=== PATIENT | female | born 1980 | race Caucasian/White ===

== ENCOUNTER 2017-06-06 17:39 | Inpatient (IN) | payer SELFPAY ==
[~2017-06-06] VITALS: Ht 167.6 cm; Wt 72.0 kg
[2017-06-06 18:25] LABS: Basophils # (auto) 0 uL; Basophils % (auto) 0.2 % (0.0-2.0); CONDITION Y; DEFINITIVE SEE PRINTOUT; Eosinophils # (auto) 0.2 uL; Eosinophils % (auto) 3.4 % (0.0-7.0); Hematocrit 31.2 % (36.0-46.0); Hemoglobin 10.2 g/dL (12.2-16.2); Lymphocytes # (auto) 1.4 uL; Lymphocytes % (auto) 20.1 % (10.0-50.0); Mean Corpuscular Hemoglobin 31.6 pg (28.0-32.0); Mean Corpuscular Hgb Conc. 32.6 g/dL (32.0-36.0); Mean Corpuscular Volume 96.9 fL (80.0-100.0); Mean Platelet Volume 9.9 fL (7.4-10.4); Monocytes # (auto) 0.9 uL; Monocytes % (auto) 12.8 % (0.0-12.0); Neutrophils # (auto) 4.3 uL; Neutrophils % (auto) 63.5 % (37.0-80.0); Platelet Count (auto) 299 10^3/uL (140-450); White Blood Cell 6.8 10^3/uL (4.4-10.8)
[2017-06-06 18:47] LABS: Albumin 2.5 g/dL (3.4-5.0); BUN/Creatinine Ratio 6.9; Calcium 7.6 mg/dL (8.5-10.1)
[2017-06-06 18:50] LABS: Bilirubin, Total 0.4 mg/dL (0.2-1.0); Total Protein 6.6 g/dL (6.4-8.2)
[2017-06-06 19:32] LABS: Urine Bilirubin Negative (Negative); Urine Blood Negative /uL (Negative); Urine Color Yellow (Yellow); Urine Glucose Normal (Normal); Urine Hyaline Cast FEW /lpf (0 - 2); Urine Ketone Negative (Negative); Urine RBC 1 /hpf (0 - 4); Urine Squamous Epithelial Cell FEW /hpf (<5); Urine Urobilinogen Normal (Negative); Urine pH 6.5 (5.0-8.0)
[2017-06-06 19:35] LABS: Urine Nitrite POSITIVE (Negative)
[2017-06-06] MEDS ORDERED: SODIUM CHLORIDE 0.9% 1,000 ML IVB ONE (19:57)
[2017-06-06 20:51] LABS: Anisocytosis Moderate; Platelet Estimate Adequate
[2017-06-06] MEDS ORDERED: cefTRIAXone 1GM/50ML D5W 50 ML IV ONE (21:15)
[2017-06-06] MEDS ORDERED: HYDROmorphone HCL 2 MG/ML VL IV ONE (21:30)
[2017-06-06] MEDS ORDERED: ONDANSETRON HCL 4 MG/2 ML VIAL IV ONE (21:30)
[2017-06-06 21:50] LABS: Amylase 460 U/L (25-115)
[2017-06-07] MEDS ORDERED: POTASSIUM CHL 20MEQ/100ML 100 ML IV ONE (00:05)
[2017-06-07] MEDS: POTASSIUM CHL 20MEQ/100ML 100 ML IV SCH ×2 (00:16→01:48)
[2017-06-07] MEDS ORDERED: HYDROmorphone HCL 2 MG/ML VL IV ONE (02:00)
[2017-06-07] MEDS ORDERED: SODIUM CHLORIDE 0.9% 1,000 ML IV SCH (08:28)
[2017-06-07] MEDS: cefTRIAXone 1GM/50ML D5W 50 ML IV SCH (09:36)
[2017-06-07] MEDS ORDERED: THIAMINE HCL 100 MG/ML 2ML VIAL IV ONE (10:00)
[2017-06-07] MEDS ORDERED: LORazepam 2MG/ML-1ML VIAL IV PRN (10:00)
[2017-06-07] MEDS: THIAMINE HCL 100 MG/ML 2ML VIAL IV SCH (10:32)
[2017-06-07] MEDS: FAMOTIDINE (10MG/ML) 2ML VL IV SCH ×2 (10:33→22:14)
[2017-06-07] MEDS: PROMETHAZINE HCL 25 MG/ML 1ML IV PRN (10:40)
[2017-06-07] MEDS: MORPHINE SULFATE 4 MG/ML SYRG IV PRN ×2 (10:40→17:18)
[2017-06-07] MEDS: metroNIDAZOLE 500MG/100ML 100 ML IV SCH ×2 (13:58→22:14)
[2017-06-07 14:42] LABS: Temperature: 22.3 C (20.0-25.0)
[2017-06-07] MEDS: LACTATED RINGER'S 1,000 ML IV SCH ×2 (15:45→22:15)
[2017-06-07 17:42] VITALS: BP 94/65
[2017-06-07 22:00] VITALS: BP 106/68
[2017-06-07] MEDS: MORPHINE SULF INJ 2 MG/ML SYRINGE 1ML IV PRN (22:15)
[2017-06-08] VITALS (7 sets, daily range): BP systolic 95–105; BP diastolic 52–66
[2017-06-08] MEDS: MORPHINE SULF INJ 2 MG/ML SYRINGE 1ML IV PRN ×4 (03:18→21:55)
[2017-06-08 05:49] LABS: Basophils # (auto) 0 uL; Basophils % (auto) 0.5 % (0.0-2.0); CONDITION Y; DEFINITIVE SEE PRINTOUT; Eosinophils # (auto) 0.1 uL; Eosinophils % (auto) 2.7 % (0.0-7.0); Hematocrit 25.9 % (36.0-46.0); Hemoglobin 8.4 g/dL (12.2-16.2); Lymphocytes % (auto) 19.8 % (10.0-50.0); Mean Corpuscular Hemoglobin 31.8 pg (28.0-32.0); Mean Corpuscular Hgb Conc. 32.2 g/dL (32.0-36.0); Mean Corpuscular Volume 98.5 fL (80.0-100.0); Mean Platelet Volume 9.7 fL (7.4-10.4); Monocytes # (auto) 0.7 uL; Monocytes % (auto) 13.2 % (0.0-12.0); Neutrophils # (auto) 3.2 uL; Neutrophils % (auto) 63.8 % (37.0-80.0); Platelet Count (auto) 299 10^3/uL (140-450); Red Cell Distribution Width 19.5 % (11.6-16.0); SUSPECT SEE PRINTOUT
[2017-06-08] MEDS: LACTATED RINGER'S 1,000 ML IV SCH ×3 (05:56→23:45)
[2017-06-08] MEDS: metroNIDAZOLE 500MG/100ML 100 ML IV SCH (05:56)
[2017-06-08 06:04] LABS: White Blood Cell 5.2 10^3/uL (4.4-10.8)
[2017-06-08 06:17] LABS: Albumin 1.9 g/dL (3.4-5.0); BUN/Creatinine Ratio 18.5; Bilirubin, Total 0.3 mg/dL (0.2-1.0); Calcium 7.2 mg/dL (8.5-10.1); Magnesium 2.1 mg/dL (1.6-2.6); Total Protein 5.1 g/dL (6.4-8.2)
[2017-06-08 06:20] LABS: Potassium 2.9 mmol/L (3.5-5.1)
[2017-06-08] MEDS ORDERED: POTASSIUM CHL 20 Meq TABLET PO ONE (06:45)
[2017-06-08] MEDS: POTASSIUM CHL 20MEQ/100ML 100 ML IV SCH ×2 (08:39→13:05)
[2017-06-08] MEDS: cefTRIAXone 1GM/50ML D5W 50 ML IV SCH (09:00)
[2017-06-08] MEDS: FAMOTIDINE (10MG/ML) 2ML VL IV SCH ×2 (09:29→21:55)
[2017-06-08] MEDS: THIAMINE HCL 100 MG/ML 2ML VIAL IV SCH (09:31)
[2017-06-08] MEDS: PROMETHAZINE HCL 25 MG/ML 1ML IV PRN (16:36)
[2017-06-09] VITALS (7 sets, daily range): BP systolic 95–105; BP diastolic 57–70
[2017-06-09] MEDS: MORPHINE SULF INJ 2 MG/ML SYRINGE 1ML IV PRN ×3 (03:15→21:13)
[2017-06-09 06:17] LABS: Hemoglobin 8.8 g/dL (12.2-16.2)
[2017-06-09 06:35] LABS: Potassium 3.1 mmol/L (3.5-5.1)
[2017-06-09] MEDS: LACTATED RINGER'S 1,000 ML IV SCH ×2 (07:37→14:47)
[2017-06-09] MEDS: cefTRIAXone 1GM/50ML D5W 50 ML IV SCH (08:22)
[2017-06-09] MEDS: MORPHINE SULFATE 4 MG/ML SYRG IV PRN ×2 (08:36→12:26)
[2017-06-09] MEDS: THIAMINE HCL 100 MG/ML 2ML VIAL IV SCH (09:53)
[2017-06-09] MEDS: FAMOTIDINE (10MG/ML) 2ML VL IV SCH ×2 (09:53→22:09)
[2017-06-09] MEDS ORDERED: POTASSIUM CHL 20 Meq TABLET PO ONE (15:15)
[2017-06-10] VITALS (7 sets, daily range): BP systolic 91–123; BP diastolic 50–81
[2017-06-10] MEDS: MORPHINE SULF INJ 2 MG/ML SYRINGE 1ML IV PRN ×5 (02:07→21:13)
[2017-06-10] MEDS: LACTATED RINGER'S 1,000 ML IV SCH ×2 (04:52→07:45)
[2017-06-10 06:50] LABS: Hematocrit 26.4 % (36.0-46.0); Hemoglobin 8.6 g/dL (12.2-16.2)
[2017-06-10] MEDS ORDERED: POTASSIUM CHL 20 Meq TABLET PO ONE (10:00)
[2017-06-10] MEDS: cefTRIAXone 1GM/50ML D5W 50 ML IV SCH (10:48)
[2017-06-10] MEDS: THIAMINE HCL 100 MG/ML 2ML VIAL IV SCH (10:50)
[2017-06-10] MEDS: FAMOTIDINE (10MG/ML) 2ML VL IV SCH ×2 (10:50→21:12)
[2017-06-10] MEDS: PROMETHAZINE HCL 25 MG/ML 1ML IV PRN (21:14)
[2017-06-11] VITALS (7 sets, daily range): BP systolic 92–116; BP diastolic 60–75
[2017-06-11 06:22] LABS: Potassium 3.4 mmol/L (3.5-5.1)
[2017-06-11] MEDS: MORPHINE SULF INJ 2 MG/ML SYRINGE 1ML IV PRN ×5 (06:46→23:06)
[2017-06-11] MEDS ORDERED: POTASSIUM CHL 20 Meq TABLET PO ONE (09:30)
[2017-06-11] MEDS: cefTRIAXone 1GM/50ML D5W 50 ML IV SCH (09:45)
[2017-06-11] MEDS: FAMOTIDINE (10MG/ML) 2ML VL IV SCH ×2 (11:19→21:58)
[2017-06-11] MEDS: THIAMINE HCL 100 MG/ML 2ML VIAL IV SCH (11:19)
[2017-06-11] MEDS: LACTATED RINGER'S 1,000 ML IV SCH (15:45)
[2017-06-11] MEDS ORDERED: FUROSEMIDE 20 MG/2 ML VIAL IV ONE (17:15)
[2017-06-12] VITALS (7 sets, daily range): BP systolic 95–110; BP diastolic 62–76
[2017-06-12] MEDS: LACTATED RINGER'S 1,000 ML IV SCH ×2 (01:45→07:00)
[2017-06-12] MEDS: MORPHINE SULF INJ 2 MG/ML SYRINGE 1ML IV PRN ×6 (03:48→23:50)
[2017-06-12 06:49] LABS: BUN/Creatinine Ratio 6.3; Calcium 7.6 mg/dL (8.5-10.1); Potassium 3.3 mmol/L (3.5-5.1)
[2017-06-12] MEDS ORDERED: POTASSIUM CHL 20 Meq TABLET PO ONE (09:15)
[2017-06-12] MEDS: cefTRIAXone 1GM/50ML D5W 50 ML IV SCH (09:53)
[2017-06-12] MEDS: FAMOTIDINE (10MG/ML) 2ML VL IV SCH ×2 (09:54→21:45)
[2017-06-12] MEDS: THIAMINE HCL 100 MG/ML 2ML VIAL IV SCH (10:04)
[2017-06-12] MEDS ORDERED: FUROSEMIDE 20 MG/2 ML VIAL IV ONE (13:00)
[2017-06-13 04:51] VITALS: BP 105/73
[2017-06-13 06:58] LABS: Magnesium 1.7 mg/dL (1.6-2.6); Potassium 3.9 mmol/L (3.5-5.1)
[2017-06-13 08:00] VITALS: BP 106/67
[2017-06-13] MEDS: MORPHINE SULF INJ 2 MG/ML SYRINGE 1ML IV PRN ×3 (08:12→13:51)
[2017-06-13 09:00] VITALS: BP 106/67
[2017-06-13] MEDS: FAMOTIDINE (10MG/ML) 2ML VL IV SCH (09:31)
[2017-06-13] MEDS: cefTRIAXone 1GM/50ML D5W 50 ML IV SCH (09:31)
[2017-06-13] MEDS: THIAMINE HCL 100 MG/ML 2ML VIAL IV SCH (09:32)
[2017-06-13] MEDS: PROMETHAZINE HCL 25 MG/ML 1ML IV PRN (09:56)
[2017-06-13] MEDS ORDERED: MAGNESIUM SULFATE 1GM/100ML 100 ML IV ONE (11:45)
[2017-06-13 13:00] VITALS: BP 110/64
[2017-06-13] MEDS ORDERED: TRAM-297 PO (13:23)
[2017-06-13 14:56] VITALS: BP 110/64
== END 2017-06-13 17:00 | disposition home or self-care (01) | DRG 689 ==
LOC: ER 17:41 → OVERFLOW 17:42 → EAST 06-07 15:18 → WEST WING 06-07 17:29
PROVIDERS: ADMIT Internal Medicine; ATTEND Internal Medicine
DX: N39.0 Urinary tract infection, site not specified (principal); K85.20 Alcohol induced acute pancreatitis without necrosis or infection; K86.2 Cyst of pancreas; R18.8 Other ascites; K86.0 Alcohol-induced chronic pancreatitis; D64.9 Anemia, unspecified; E87.6 Hypokalemia; B96.20 Unspecified Escherichia coli [E. coli] as the cause of diseases classified elsewhere; F10.10 Alcohol abuse, uncomplicated; K70.0 Alcoholic fatty liver; F17.200 Nicotine dependence, unspecified, uncomplicated; Z80.1 Family history of malignant neoplasm of trachea, bronchus and lung; Z83.3 Family history of diabetes mellitus; Z88.5 Allergy status to narcotic agent; Z88.8 Allergy status to other drugs, medicaments and biological substances; Z71.41 Alcohol abuse counseling and surveillance of alcoholic; Z71.6 Tobacco abuse counseling
CPT/HCPCS: 36415; 74176; 76705; 80048; 80053; 80061; 81001; 81025; 82150; 82270; 82607; 82746; 83540; 83550; 83690; 83735; 84132; 84702; 85014; 85018; 85025; 87086; 87088; 87186; 94761; 96361; 96365; 96375; J0696; J2405; J3480; J3490

== ENCOUNTER 2017-06-26 19:58 | Inpatient (IN) | payer SELFPAY ==
[~2017-06-26] VITALS: Ht 167.6 cm; Wt 67.3 kg
[~2017-06-26 19:58] MED LIST: TRAM-297 PO
[2017-06-26 20:35] LABS: Urine Blood 3+ /uL (Negative); Urine Color Yellow (Yellow); Urine Glucose Normal (Normal); Urine Hyaline Cast MANY /lpf (0 - 2); Urine Ketone 3+ (Negative); Urine Mucus FEW (None Seen); Urine Nitrite Negative (Negative); Urine RBC 15 /hpf (0 - 4); Urine Squamous Epithelial Cell FEW /hpf (<5)
[2017-06-26 20:42] LABS: Urine Bilirubin 1+ (Negative)
[2017-06-26 20:44] LABS: Basophils # (auto) 0 uL; Basophils % (auto) 0.2 % (0.0-2.0); CONDITION Y; DEFINITIVE SEE PRINTOUT; Eosinophils # (auto) 0.1 uL; Eosinophils % (auto) 1.1 % (0.0-7.0); Lymphocytes # (auto) 1.1 uL; Lymphocytes % (auto) 8.3 % (10.0-50.0); Mean Corpuscular Hemoglobin 29.1 pg (28.0-32.0); Mean Corpuscular Hgb Conc. 32.3 g/dL (32.0-36.0); Mean Corpuscular Volume 90.1 fL (80.0-100.0); Mean Platelet Volume 7.7 fL (7.4-10.4); Monocytes # (auto) 0.6 uL; Neutrophils % (auto) 85.4 % (37.0-80.0); White Blood Cell 12.9 10^3/uL (4.4-10.8)
[2017-06-26 21:03] LABS: Albumin 1.7 g/dL (3.4-5.0); BUN/Creatinine Ratio 16.7; Calcium 8.1 mg/dL (8.5-10.1); Potassium 3.5 mmol/L (3.5-5.1)
[2017-06-26 21:05] LABS: Platelet Count (auto) 835 10^3/uL (140-450)
[2017-06-26 21:11] LABS: Total Protein 6.3 g/dL (6.4-8.2)
[2017-06-26 21:18] LABS: Anisocytosis Slight; Platelet Estimate Markedly Increased; Stomatocytes Few
[2017-06-26 21:21] LABS: Bilirubin, Total 0.4 mg/dL (0.2-1.0)
[2017-06-26] MEDS ORDERED: HYDROmorphone HCL 2 MG/ML VL IV ONE (22:00)
[2017-06-26] MEDS ORDERED: ONDANSETRON HCL 4 MG/2 ML VIAL IV ONE (22:00)
[2017-06-26] MEDS ORDERED: ENOXAPARIN SOD 100 MG/1 ML SYRINGE SC ONE (22:30)
[2017-06-27] MEDS ORDERED: cefTRIAXone 1GM/50ML D5W 50 ML IV ONE (01:15)
[2017-06-27] MEDS ORDERED: SODIUM CHLORIDE 0.9% 1,000 ML IV SCH (01:15)
[2017-06-27] MEDS: MORPHINE SULF INJ 2 MG/ML SYRINGE 1ML IV PRN ×4 (06:07→20:21)
[2017-06-27] MEDS: ONDANSETRON HCL 4 MG/2 ML VIAL IV PRN ×4 (06:08→20:20)
[2017-06-27 07:57] VITALS: BP 112/73
[2017-06-27] MEDS: FAMOTIDINE 20 MG TAB PO SCH ×2 (09:31→21:34)
[2017-06-27] MEDS: ENOXAPARIN SOD 80 MG/0.8ML SYRINGE SC SCH ×2 (10:00→16:29)
[2017-06-27 10:53] LABS: INR 1.12 (0.9-1.15); Partial Thromboplastin Time 25.3 sec (22.64-33.71); Prothrombin Time 12.2 sec (9.37-12.3)
[2017-06-27] MEDS ORDERED: ENOXAPARIN SOD 100 MG/1 ML SYRINGE SC ONE (13:15)
[2017-06-27] MEDS ORDERED: IOHEXOL 350 MG/ML 100ML IJ ONE (13:16)
[2017-06-27] MEDS: LACTATED RINGER'S 1,000 ML IV SCH ×2 (15:36→20:45)
[2017-06-27] MEDS: ALBUMIN 25% 100 ML IV SCH ×2 (16:32→17:44)
[2017-06-27 17:00] VITALS: BP 111/70
[2017-06-27 17:38] LABS: Body Fluid Polymorphonuclear 50 %
[2017-06-27 20:00] VITALS: BP 101/64
[2017-06-27] MEDS: cefTRIAXone 1GM/50ML D5W 50 ML IV SCH (21:33)
[2017-06-27] MEDS: TEMAZEPAM 15 MG CAP PO PRN (21:34)
[2017-06-27 22:00] VITALS: BP 101/64
[2017-06-27] MEDS ORDERED: ENOXAPARIN SOD 100 MG/1 ML SYRINGE SC SCH (22:00)
[2017-06-28] MEDS: MORPHINE SULF INJ 2 MG/ML SYRINGE 1ML IV PRN ×5 (02:07→21:37)
[2017-06-28] MEDS: ONDANSETRON HCL 4 MG/2 ML VIAL IV PRN ×4 (02:08→15:23)
[2017-06-28 05:09] VITALS: BP 97/61
[2017-06-28] MEDS: LACTATED RINGER'S 1,000 ML IV SCH ×2 (06:59→15:59)
[2017-06-28 07:23] LABS: Basophils # (auto) 0 uL; Basophils % (auto) 0.3 % (0.0-2.0); CONDITION Y; DEFINITIVE SEE PRINTOUT; Eosinophils # (auto) 0.4 uL; Eosinophils % (auto) 4.1 % (0.0-7.0); Hematocrit 30.4 % (36.0-46.0); Hemoglobin 9.9 g/dL (12.2-16.2); Lymphocytes # (auto) 1.1 uL; Lymphocytes % (auto) 11.4 % (10.0-50.0); Mean Corpuscular Hemoglobin 29.4 pg (28.0-32.0); Mean Corpuscular Hgb Conc. 32.7 g/dL (32.0-36.0); Mean Corpuscular Volume 89.8 fL (80.0-100.0); Mean Platelet Volume 7.8 fL (7.4-10.4); Monocytes # (auto) 0.6 uL; Monocytes % (auto) 5.9 % (0.0-12.0); Neutrophils # (auto) 7.8 uL; Neutrophils % (auto) 78.3 % (37.0-80.0); Red Cell Distribution Width 19.2 % (11.6-16.0)
[2017-06-28 07:40] LABS: Platelet Count (auto) 750 10^3/uL (140-450)
[2017-06-28 07:43] LABS: Albumin 2.1 g/dL (3.4-5.0); BUN/Creatinine Ratio 16.7; Bilirubin, Total 0.3 mg/dL (0.2-1.0); Calcium 7.5 mg/dL (8.5-10.1); Potassium 3.1 mmol/L (3.5-5.1); Total Protein 5.6 g/dL (6.4-8.2)
[2017-06-28 07:53] LABS: Platelet Estimate Increased
[2017-06-28 07:55] LABS: Anisocytosis Slight; Giant Platelets Few
[2017-06-28 09:54] VITALS: BP 96/61
[2017-06-28] MEDS: FAMOTIDINE 20 MG TAB PO SCH ×2 (10:00→21:35)
[2017-06-28] MEDS ORDERED: POTASSIUM CHLORIDE 40 MEQ, LIDOCAINE 1% (LOCAL ANESTH.) 4 ML in SODIUM CHL 0.9% 250 ML IV ONE (10:30)
[2017-06-28] MEDS: ENOXAPARIN SOD 80 MG/0.8ML SYRINGE SC SCH ×2 (10:52→21:35)
[2017-06-28 12:07] LABS: Albumin, Body Fluid 1.1 g/dL (.)
[2017-06-28] MEDS ORDERED: diphenhdrAMINE HCL 50 MG/1 ML VL IV ONE (12:15)
[2017-06-28] MEDS ORDERED: chlordiazePOXIDE HCL 5 MG CAP PO PRN (12:15)
[2017-06-28] MEDS ORDERED: diphenhdrAMINE HCL 50 MG/1 ML VL IV PRN (12:15)
[2017-06-28 12:46] VITALS: BP 96/62
[2017-06-28] MEDS: THIAMINE INJ 100 MG, MULTIPLE VITAMIN 10 ML, FOLIC ACID 1 MG, MAGNESIUM SULF SDV 50% 8 ... IV SCH ×5 (15:24)
[2017-06-28 17:44] VITALS: BP 102/68
[2017-06-28] MEDS: cefTRIAXone 1GM/50ML D5W 50 ML IV SCH (21:35)
[2017-06-28 22:00] VITALS: BP 103/70
[2017-06-28] MEDS: TEMAZEPAM 15 MG CAP PO PRN (22:23)
[2017-06-29] MEDS: MORPHINE SULF INJ 2 MG/ML SYRINGE 1ML IV PRN ×6 (01:43→22:10)
[2017-06-29 05:00] VITALS: BP 99/64
[2017-06-29 05:35] LABS: Basophils # (auto) 0 uL; Basophils % (auto) 0.3 % (0.0-2.0); CONDITION Y; DEFINITIVE SEE PRINTOUT; Eosinophils # (auto) 0.3 uL; Hematocrit 28.2 % (36.0-46.0); Hemoglobin 9.1 g/dL (12.2-16.2); Lymphocytes # (auto) 1.1 uL; Lymphocytes % (auto) 11.3 % (10.0-50.0); Mean Corpuscular Hgb Conc. 32.3 g/dL (32.0-36.0); Mean Corpuscular Volume 89.8 fL (80.0-100.0); Mean Platelet Volume 7.3 fL (7.4-10.4); Monocytes # (auto) 0.5 uL; Monocytes % (auto) 5.6 % (0.0-12.0); Neutrophils # (auto) 7.5 uL; Neutrophils % (auto) 79.8 % (37.0-80.0); Platelet Count (auto) 694 10^3/uL (140-450); White Blood Cell 9.4 10^3/uL (4.4-10.8)
[2017-06-29 06:00] LABS: Albumin 1.6 g/dL (3.4-5.0); Calcium 7.3 mg/dL (8.5-10.1); Potassium 3.2 mmol/L (3.5-5.1)
[2017-06-29 06:02] LABS: BUN/Creatinine Ratio 13.5
[2017-06-29 06:05] LABS: Bilirubin, Total 0.2 mg/dL (0.2-1.0); Total Protein 4.7 g/dL (6.4-8.2)
[2017-06-29 06:37] LABS: Anisocytosis Slight; Ovalocytes FEW; Platelet Estimate Increased
[2017-06-29 07:00] VITALS: BP 105/66
[2017-06-29] MEDS ORDERED: POTASSIUM CHLORIDE 40 MEQ, LIDOCAINE 1% (LOCAL ANESTH.) 4 ML in SODIUM CHL 0.9% 250 ML IV ONE (09:15)
[2017-06-29] MEDS: ENOXAPARIN SOD 80 MG/0.8ML SYRINGE SC SCH ×2 (09:31→22:00)
[2017-06-29] MEDS: ONDANSETRON HCL 4 MG/2 ML VIAL IV PRN ×3 (09:32→18:07)
[2017-06-29] MEDS: FAMOTIDINE 20 MG TAB PO SCH ×2 (09:32→22:00)
[2017-06-29 09:42] LABS: Amylase 380 U/L (25-115)
[2017-06-29 12:03] VITALS: BP 103/66
[2017-06-29] MEDS: LACTATED RINGER'S 1,000 ML IV SCH ×2 (12:03)
[2017-06-29] MEDS: THIAMINE INJ 100 MG, MULTIPLE VITAMIN 10 ML, FOLIC ACID 1 MG, MAGNESIUM SULF SDV 50% 8 ... IV SCH ×5 (14:01)
[2017-06-29 16:26] VITALS: BP 103/73
[2017-06-29 22:00] VITALS: BP 100/61
[2017-06-29] MEDS: cefTRIAXone 1GM/50ML D5W 50 ML IV SCH (22:30)
[2017-06-29] MEDS: TEMAZEPAM 15 MG CAP PO PRN (23:04)
[2017-06-30] MEDS: LACTATED RINGER'S 1,000 ML IV SCH (03:43)
[2017-06-30 05:00] VITALS: BP 103/64
[2017-06-30] MEDS: MORPHINE SULF INJ 2 MG/ML SYRINGE 1ML IV PRN ×4 (06:22→19:17)
[2017-06-30 09:00] VITALS: BP 123/86
[2017-06-30] MEDS: FAMOTIDINE 20 MG TAB PO SCH ×2 (10:19→21:23)
[2017-06-30] MEDS: ENOXAPARIN SOD 80 MG/0.8ML SYRINGE SC SCH ×2 (10:20→21:23)
[2017-06-30 13:00] VITALS: BP 113/59
[2017-06-30] MEDS: THIAMINE INJ 100 MG, MULTIPLE VITAMIN 10 ML, FOLIC ACID 1 MG, MAGNESIUM SULF SDV 50% 8 ... IV SCH ×5 (14:19)
[2017-06-30 17:13] VITALS: BP 105/68
[2017-06-30 21:17] VITALS: BP 105/62
[2017-06-30] MEDS: cefTRIAXone 1GM/50ML D5W 50 ML IV SCH (21:23)
[2017-06-30] MEDS: TEMAZEPAM 15 MG CAP PO PRN (21:39)
[2017-07-01] MEDS: MORPHINE SULF INJ 2 MG/ML SYRINGE 1ML IV PRN ×5 (00:21→19:41)
[2017-07-01 04:56] VITALS: BP 96/57
[2017-07-01 09:00] VITALS: BP 106/67
[2017-07-01] MEDS: ENOXAPARIN SOD 80 MG/0.8ML SYRINGE SC SCH ×2 (10:48→21:25)
[2017-07-01] MEDS: FAMOTIDINE 20 MG TAB PO SCH ×2 (10:48→21:25)
[2017-07-01] MEDS: ALBUMIN 25% 100 ML IV SCH ×2 (11:08→15:03)
[2017-07-01 13:00] VITALS: BP 104/71
[2017-07-01 14:21] LABS: Body Fluid Polymorphonuclear 96 %
[2017-07-01 17:00] VITALS: BP 108/70
[2017-07-01] MEDS: TEMAZEPAM 15 MG CAP PO PRN (21:25)
[2017-07-01 22:00] VITALS: BP 103/64
[2017-07-01] MEDS ORDERED: cefTRIAXone 1GM/50ML D5W 50 ML IV SCH (22:00)
[2017-07-02] MEDS: MORPHINE SULF INJ 2 MG/ML SYRINGE 1ML IV PRN ×5 (00:45→23:19)
[2017-07-02 05:00] VITALS: BP 95/60
[2017-07-02 08:00] VITALS: BP 103/64
[2017-07-02] MEDS: FAMOTIDINE 20 MG TAB PO SCH ×2 (09:20→22:00)
[2017-07-02] MEDS: ENOXAPARIN SOD 80 MG/0.8ML SYRINGE SC SCH ×2 (09:20→22:00)
[2017-07-02 09:25] LABS: Basophils # (auto) 0 uL; Basophils % (auto) 0.1 % (0.0-2.0); CONDITION Y; DEFINITIVE SEE PRINTOUT; Eosinophils # (auto) 0.1 uL; Eosinophils % (auto) 1.8 % (0.0-7.0); Hematocrit 26.9 % (36.0-46.0); Hemoglobin 8.7 g/dL (12.2-16.2); Lymphocytes % (auto) 15.9 % (10.0-50.0); Mean Corpuscular Hgb Conc. 32.5 g/dL (32.0-36.0); Mean Corpuscular Volume 89.2 fL (80.0-100.0); Mean Platelet Volume 7.5 fL (7.4-10.4); Monocytes # (auto) 0.7 uL; Monocytes % (auto) 11.1 % (0.0-12.0); Neutrophils # (auto) 4.5 uL; Neutrophils % (auto) 71.1 % (37.0-80.0); Platelet Count (auto) 693 10^3/uL (140-450); Red Cell Distribution Width 19.2 % (11.6-16.0); SUSPECT SEE PRINTOUT; White Blood Cell 6.3 10^3/uL (4.4-10.8)
[2017-07-02 09:42] LABS: INR 1.15 (0.9-1.15); Partial Thromboplastin Time 31.5 sec (22.64-33.71); Prothrombin Time 12.5 sec (9.37-12.3)
[2017-07-02 09:47] LABS: Anion Gap 8 (5-15); BUN/Creatinine Ratio 2.6; Blood Urea Nitrogen < 1 mg/dL (7-18); Carbon Dioxide 28 mmol/L (21-32); Chloride 104 mmol/L (98-107); GFR African American 244 mL/min; GFR Non-African American 201 mL/min; Glucose 94 mg/dL (74-106); Potassium 3.4 mmol/L (3.5-5.1); Sodium 140 mmol/L (136-145)
[2017-07-02 10:53] LABS: Anisocytosis Slight; Platelet Estimate Increased
[2017-07-02 12:00] VITALS: BP 91/56
[2017-07-02 17:00] VITALS: BP 128/79
[2017-07-02] MEDS ORDERED: WARFARIN SODIUM 5 MG TAB PO ONE (17:00)
[2017-07-02 22:00] VITALS: BP 106/69
[2017-07-03] MEDS: MORPHINE SULF INJ 2 MG/ML SYRINGE 1ML IV PRN ×5 (04:29→21:15)
[2017-07-03 05:00] VITALS: BP 101/68
[2017-07-03 07:02] LABS: Basophils # (auto) 0 uL; Basophils % (auto) 0.3 % (0.0-2.0); CONDITION Y; DEFINITIVE SEE PRINTOUT; Eosinophils # (auto) 0.2 uL; Eosinophils % (auto) 3.2 % (0.0-7.0); Hematocrit 23.2 % (36.0-46.0); Hemoglobin 7.6 g/dL (12.2-16.2); Lymphocytes % (auto) 16.6 % (10.0-50.0); Mean Corpuscular Hemoglobin 28.8 pg (28.0-32.0); Mean Corpuscular Hgb Conc. 32.9 g/dL (32.0-36.0); Mean Corpuscular Volume 87.6 fL (80.0-100.0); Mean Platelet Volume 7.9 fL (7.4-10.4); Monocytes # (auto) 0.9 uL; Monocytes % (auto) 14.9 % (0.0-12.0); Neutrophils # (auto) 3.8 uL; Platelet Count (auto) 594 10^3/uL (140-450); Red Cell Distribution Width 19.5 % (11.6-16.0); White Blood Cell 5.8 10^3/uL (4.4-10.8)
[2017-07-03 07:16] LABS: INR 1.2 (0.9-1.15); Partial Thromboplastin Time 33.4 sec (22.64-33.71); Prothrombin Time 13.1 sec (9.37-12.3)
[2017-07-03] MEDS: ONDANSETRON HCL 4 MG/2 ML VIAL IV PRN ×3 (08:23→17:06)
[2017-07-03 08:24] VITALS: BP 111/70
[2017-07-03 09:00] VITALS: BP 111/70
[2017-07-03] MEDS: FAMOTIDINE 20 MG TAB PO SCH ×2 (09:18→21:30)
[2017-07-03] MEDS: ENOXAPARIN SOD 80 MG/0.8ML SYRINGE SC SCH ×2 (09:22→21:31)
[2017-07-03 13:00] VITALS: BP_SYST 100; BP_SYST 103; BP_DIAS 65; BP_DIAS 68
[2017-07-03] MEDS ORDERED: LORazepam 2MG/ML-1ML VIAL IV ONE (14:15)
[2017-07-03] MEDS ORDERED: WARFARIN SODIUM 2.5 MG TAB PO ONE (17:00)
[2017-07-03 20:00] VITALS: BP 99/63
[2017-07-03 21:30] VITALS: BP 99/63
[2017-07-03] MEDS: TEMAZEPAM 15 MG CAP PO PRN (21:31)
[2017-07-04] VITALS (13 sets, daily range): BP systolic 93–142; BP diastolic 53–80
[2017-07-04] MEDS: MORPHINE SULF INJ 2 MG/ML SYRINGE 1ML IV PRN ×6 (02:48→23:35)
[2017-07-04 06:37] LABS: Basophils # (auto) 0 uL; Basophils % (auto) 0.5 % (0.0-2.0); CONDITION Y; DEFINITIVE SEE PRINTOUT; Eosinophils # (auto) 0.2 uL; Eosinophils % (auto) 2.8 % (0.0-7.0); Hematocrit 23.4 % (36.0-46.0); Hemoglobin 7.6 g/dL (12.2-16.2); Lymphocytes # (auto) 1.1 uL; Lymphocytes % (auto) 18.4 % (10.0-50.0); Mean Corpuscular Hemoglobin 28.5 pg (28.0-32.0); Mean Corpuscular Hgb Conc. 32.4 g/dL (32.0-36.0); Mean Corpuscular Volume 88.1 fL (80.0-100.0); Monocytes # (auto) 0.8 uL; Neutrophils % (auto) 65.3 % (37.0-80.0); Platelet Count (auto) 593 10^3/uL (140-450); Red Cell Distribution Width 19.3 % (11.6-16.0); White Blood Cell 6.1 10^3/uL (4.4-10.8)
[2017-07-04 06:50] LABS: INR 1.47 (0.9-1.15); Partial Thromboplastin Time 29.7 sec (22.64-33.71); Prothrombin Time 16.1 sec (9.37-12.3)
[2017-07-04 07:03] LABS: Potassium 3.4 mmol/L (3.5-5.1)
[2017-07-04 07:07] LABS: BUN/Creatinine Ratio 7.1; Calcium 7.4 mg/dL (8.5-10.1)
[2017-07-04] MEDS: ONDANSETRON HCL 4 MG/2 ML VIAL IV PRN ×3 (07:08→15:38)
[2017-07-04] MEDS: FAMOTIDINE 20 MG TAB PO SCH ×2 (09:19→22:16)
[2017-07-04] MEDS: ENOXAPARIN SOD 80 MG/0.8ML SYRINGE SC SCH ×2 (09:20→22:16)
[2017-07-04] MEDS ORDERED: APIXABAN 5 MG TAB PO SCH (10:00)
[2017-07-04] MEDS ORDERED: GADOPENTETATE DIMEGLUMINE (10MMOL/20 ML) VIAL IV ONE (11:06)
[2017-07-04] MEDS ORDERED: FUROSEMIDE 40 MG/4 ML VIAL IV ONE (15:00)
[2017-07-04] MEDS ORDERED: POTASSIUM CHL 20 Meq TABLET PO ONE (15:30)
[2017-07-04] MEDS ORDERED: WARFARIN SODIUM 2.5 MG TAB PO ONE (17:00)
[2017-07-04] MEDS: TEMAZEPAM 15 MG CAP PO PRN (22:28)
[2017-07-05 05:00] VITALS: BP 103/63
[2017-07-05] MEDS: MORPHINE SULF INJ 2 MG/ML SYRINGE 1ML IV PRN ×5 (05:08→21:36)
[2017-07-05 06:55] LABS: INR 1.9 (0.9-1.15); Partial Thromboplastin Time 34.5 sec (22.64-33.71); Prothrombin Time 20.9 sec (9.37-12.3)
[2017-07-05 08:43] LABS: Basophils # (auto) 0 uL; Basophils % (auto) 0.3 % (0.0-2.0); CONDITION Y; Eosinophils # (auto) 0.2 uL; Eosinophils % (auto) 2.9 % (0.0-7.0); Hematocrit 31.9 % (36.0-46.0); Hemoglobin 10.3 g/dL (12.2-16.2); Lymphocytes # (auto) 1.2 uL; Lymphocytes % (auto) 18.7 % (10.0-50.0); Mean Corpuscular Hemoglobin 28.5 pg (28.0-32.0); Mean Corpuscular Hgb Conc. 32.3 g/dL (32.0-36.0); Mean Corpuscular Volume 88.1 fL (80.0-100.0); Mean Platelet Volume 9.3 fL (7.4-10.4); Monocytes # (auto) 1.1 uL; Monocytes % (auto) 17.1 % (0.0-12.0); Platelet Count (auto) 512 10^3/uL (140-450); White Blood Cell 6.5 10^3/uL (4.4-10.8)
[2017-07-05 09:00] VITALS: BP 94/57
[2017-07-05] MEDS: FAMOTIDINE 20 MG TAB PO SCH ×2 (09:31→21:35)
[2017-07-05] MEDS: ENOXAPARIN SOD 80 MG/0.8ML SYRINGE SC SCH ×2 (09:31→21:35)
[2017-07-05] MEDS ORDERED: FERROUS SULFATE 325 MG TAB PO ONE (11:15)
[2017-07-05] MEDS ORDERED: MULTIPLE VITAMIN TAB PO ONE (11:15)
[2017-07-05] MEDS ORDERED: POTASSIUM CHL 20 Meq TABLET PO ONE (11:15)
[2017-07-05] MEDS ORDERED: FUROSEMIDE 40 MG/4 ML VIAL IV ONE (11:15)
[2017-07-05 13:00] VITALS: BP 94/61
[2017-07-05] MEDS ORDERED: FER325T PO (15:50)
[2017-07-05] MEDS ORDERED: WARPRX PO (15:50)
[2017-07-05 17:00] VITALS: BP 96/55
[2017-07-05] MEDS ORDERED: WARFARIN SODIUM 5 MG TAB PO ONE (17:00)
[2017-07-05] MEDS: TEMAZEPAM 15 MG CAP PO PRN (21:36)
[2017-07-05 22:00] VITALS: BP 101/60
[2017-07-06] MEDS: MORPHINE SULF INJ 2 MG/ML SYRINGE 1ML IV PRN ×4 (01:39→13:45)
[2017-07-06 05:00] VITALS: BP 102/66
[2017-07-06 06:36] LABS: INR 2.27 (0.9-1.15); Partial Thromboplastin Time 38.4 sec (22.64-33.71); Prothrombin Time 24.9 sec (9.37-12.3)
[2017-07-06 06:46] LABS: Calcium 7.8 mg/dL (8.5-10.1)
[2017-07-06 06:49] LABS: BUN/Creatinine Ratio 8.3
[2017-07-06 09:00] VITALS: BP 93/61
[2017-07-06] MEDS: FAMOTIDINE 20 MG TAB PO SCH (09:51)
[2017-07-06] MEDS: ENOXAPARIN SOD 80 MG/0.8ML SYRINGE SC SCH (09:52)
[2017-07-06] MEDS ORDERED: FERROUS SULFATE 325 MG TAB PO SCH (10:00)
[2017-07-06 13:00] VITALS: BP 89/52
[2017-07-06] MEDS ORDERED: WARFARIN SODIUM 2 MG TAB PO ONE (17:00)
== END 2017-07-06 14:00 | disposition home or self-care (01) | DRG 438 ==
LOC: ER 20:10 → TELE 20:11 → EAST 06-27 08:19
PROVIDERS: ADMIT Nurse Practitioner; ATTEND Internal Medicine
PROC: 0W9G3ZZ Drainage of Peritoneal Cavity, Percutaneous Approach (ICD-10-PCS; 2017-06-27)
PROC: 0W9G3ZZ Drainage of Peritoneal Cavity, Percutaneous Approach (ICD-10-PCS; 2017-07-03)
PROC: 30233N1 Transfusion of Nonautologous Red Blood Cells into Peripheral Vein, Percutaneous Approach (ICD-10-PCS; principal; 2017-07-04)
DX: K85.20 Alcohol induced acute pancreatitis without necrosis or infection (principal); I26.99 Other pulmonary embolism without acute cor pulmonale; E43 Unspecified severe protein-calorie malnutrition; R18.8 Other ascites; K76.0 Fatty (change of) liver, not elsewhere classified; N39.0 Urinary tract infection, site not specified; K86.3 Pseudocyst of pancreas; I82.401 Acute embolism and thrombosis of unspecified deep veins of right lower extremity; D75.89 Other specified diseases of blood and blood-forming organs; F32.9 Major depressive disorder, single episode, unspecified; F41.9 Anxiety disorder, unspecified; D47.3 Essential (hemorrhagic) thrombocythemia; K86.0 Alcohol-induced chronic pancreatitis; Z80.1 Family history of malignant neoplasm of trachea, bronchus and lung; Z98.82 Breast implant status; Z88.8 Allergy status to other drugs, medicaments and biological substances; Z88.5 Allergy status to narcotic agent; Z68.23 Body mass index [BMI] 23.0-23.9, adult
CPT/HCPCS: 36415; 71260; 72195; 74176; 74177; 76705; 76830; 76856; 76942; 80048; 80053; 80074; 80307; 81001; 81025; 82150; 82728; 83540; 83550; 83690; 83735; 83986; 85025; 85610; 85730; 86304; 86850; 86900; 86901; 86920; 87081; 87086; 87205; 89051; 93005; 93971; 96365; 96372; 96375; J0696; J2001; J2405

== ENCOUNTER 2018-03-15 10:55 | Inpatient (IN) | payer MEDICAID ==
[~2018-03-15] VITALS: Ht 165.1 cm; Wt 72.5 kg
[~2018-03-15 10:55] MED LIST changes: +FER325T PO; -TRAM-297 PO; +WARPRX PO
[2018-03-15] MEDS ORDERED: SODIUM CHLORIDE 0.9% 1,000 ML IV ONE (11:45)
[2018-03-15 11:47] LABS: Basophils # (auto) 0 uL; Basophils % (auto) 0.4 % (0.0-2.0); Eosinophils # (auto) 0.2 uL; Hematocrit 33.7 % (36.0-46.0); Hemoglobin 11.4 g/dL (12.2-16.2); Lymphocytes # (auto) 1.4 uL; Lymphocytes % (auto) 14.5 % (10.0-50.0); Mean Corpuscular Hemoglobin 30.3 pg (28.0-32.0); Mean Corpuscular Hgb Conc. 33.8 g/dL (32.0-36.0); Mean Corpuscular Volume 89.9 fL (80.0-100.0); Monocytes # (auto) 0.6 uL; Monocytes % (auto) 6.4 % (0.0-12.0); Neutrophils # (auto) 7.4 uL; Neutrophils % (auto) 76.7 % (37.0-80.0); Platelet Count (auto) 275 10^3/uL (140-450); Red Blood Cells 3.75 10^6/uL (4.0-5.20); Red Cell Distribution Width 13.7 % (11.8-14.3); White Blood Cell 9.7 10^3/uL (4.4-10.8)
[2018-03-15 12:02] LABS: Amylase 614 U/L (25-115); Lipase 8498 U/L (73-393)
[2018-03-15 12:24] LABS: Albumin 3.2 g/dL (3.4-5.0); BUN/Creatinine Ratio 13.2; Bilirubin, Total 0.2 mg/dL (0.2-1.0); Total Protein 6.9 g/dL (6.4-8.2)
[2018-03-15 12:41] LABS: Urine Bacteria FEW /hpf (None Seen); Urine Blood Negative /uL (Negative); Urine Specific Gravity 1.004 (1.001-1.035); Urine WBC 1 /hpf (0 - 5)
[2018-03-15 12:43] LABS: Alcohol, Urine < 3.0 mg/dL (0-5); Amphetamine Screen, Urine NEGATIVE (NEGATIVE); Barbiturate Scree,Urine NEGATIVE (NEGATIVE); Benzodiazephine Screen, Urine NEGATIVE (NEGATIVE); Cannabinoid Screen, Urine NEGATIVE (NEGATIVE); Cocaine Screen, Urine NEGATIVE (NEGATIVE); Opiate Scree,Urine NEGATIVE (NEGATIVE); Phencyclidine Screen, Urine NEGATIVE (NEGATIVE)
[2018-03-15 12:48] LABS: INR 0.91 (0.9-1.15); Prothrombin Time 9.9 sec (9.37-12.3)
[2018-03-15] MEDS ORDERED: cefTRIAXone 1GM/10ml IVPUSH 10 ML IV ONE (15:15)
[2018-03-15] MEDS ORDERED: ONDANSETRON HCL 4 MG/2 ML VIAL IV PRN (15:30)
[2018-03-15] MEDS ORDERED: MORPHINE SULFATE 4 MG/ML SYR/VIAL IV PRN ×2 (15:30)
[2018-03-15] MEDS ORDERED: DOCUSATE SOD 100 MG CAP PO PRN (15:30)
[2018-03-15] MEDS ORDERED: NITROGLYCERIN 0.4 MG SL TAB SL PRN (15:30)
[2018-03-15] MEDS ORDERED: TEMAZEPAM 15 MG CAP PO PRN (15:30)
[2018-03-15] MEDS: SODIUM CHLORIDE 0.9% 1,000 ML IV SCH (16:00)
[2018-03-15] MEDS: ENOXAPARIN SOD 40 MG/0.4 ML SYRINGE SC SCH (16:00)
[2018-03-15 17:24] VITALS: BP 103/57
[2018-03-15] MEDS: BOOST PLUS 8 ounce PO SCH (18:00)
[2018-03-15] MEDS: FAMOTIDINE 20 MG TAB PO SCH (21:22)
[2018-03-15 22:00] VITALS: BP 101/53
[2018-03-16 05:00] VITALS: BP 97/64
[2018-03-16 05:55] LABS: Basophils # (auto) 0 uL; Basophils % (auto) 0.2 % (0.0-2.0); Eosinophils # (auto) 0.2 uL; Eosinophils % (auto) 2.7 % (0.0-7.0); Hematocrit 27.9 % (36.0-46.0); Hemoglobin 9.6 g/dL (12.2-16.2); Lymphocytes # (auto) 1.5 uL; Lymphocytes % (auto) 20.6 % (10.0-50.0); Mean Corpuscular Hemoglobin 30.8 pg (28.0-32.0); Mean Corpuscular Hgb Conc. 34.2 g/dL (32.0-36.0); Mean Corpuscular Volume 89.9 fL (80.0-100.0); Monocytes # (auto) 0.5 uL; Monocytes % (auto) 7.4 % (0.0-12.0); Neutrophils # (auto) 4.9 uL; Neutrophils % (auto) 69.1 % (37.0-80.0); Nucleated Red Blood Cells % 0.1 %; Platelet Count (auto) 220 10^3/uL (140-450); Red Blood Cells 3.11 10^6/uL (4.0-5.20); Red Cell Distribution Width 13.9 % (11.8-14.3); White Blood Cell 7.1 10^3/uL (4.4-10.8)
[2018-03-16 06:08] LABS: Albumin 2.5 g/dL (3.4-5.0); BUN/Creatinine Ratio 18.8; Calcium 8.7 mg/dL (8.5-10.1); Potassium 4.1 mmol/L (3.5-5.1)
[2018-03-16 06:19] LABS: Bilirubin, Total 0.1 mg/dL (0.2-1.0)
[2018-03-16] MEDS: BOOST PLUS 8 ounce PO SCH ×2 (07:31→11:04)
[2018-03-16] MEDS: SODIUM CHLORIDE 0.9% 1,000 ML IV SCH (07:31)
[2018-03-16 08:00] VITALS: BP 101/54
[2018-03-16 09:00] VITALS: BP 101/54
[2018-03-16] MEDS ORDERED: cefTRIAXone 1GM/10ml IVPUSH 10 ML IV SCH (09:00)
[2018-03-16] MEDS: ENOXAPARIN SOD 40 MG/0.4 ML SYRINGE SC SCH (09:06)
[2018-03-16] MEDS: FAMOTIDINE 20 MG TAB PO SCH (09:06)
[2018-03-16] MEDS ORDERED: ACETAMINOPHEN 500 MG TAB PO PRN (10:00)
[2018-03-16] MEDS ORDERED: PRENATAL VITAMIN TAB PO SCH (10:00)
[2018-03-16 12:45] VITALS: BP 94/55
[2018-03-16] MEDS ORDERED: ACETAMINOPHEN 325 MG TAB PO PRN (13:15)
[2018-03-16 14:07] VITALS: BP 94/55
== END 2018-03-16 15:00 | disposition home or self-care (01) | DRG 566 ==
LOC: ER 10:55 → TELE 10:56 → TELE-CENTR 16:38
PROVIDERS: ADMIT Internal Medicine; ATTEND Internal Medicine
DX: O26.892 Other specified pregnancy related conditions, second trimester (principal); K85.90 Acute pancreatitis without necrosis or infection, unspecified; E44.0 Moderate protein-calorie malnutrition; K86.1 Other chronic pancreatitis; O99.112 Other diseases of the blood and blood-forming organs and certain disorders involving the immune mechanism complicating pregnancy, second trimester; O99.612 Diseases of the digestive system complicating pregnancy, second trimester; Z3A.20 20 weeks gestation of pregnancy; O99.332 Smoking (tobacco) complicating pregnancy, second trimester; F17.210 Nicotine dependence, cigarettes, uncomplicated; O16.2 Unspecified maternal hypertension, second trimester; O25.12 Malnutrition in pregnancy, second trimester; D63.8 Anemia in other chronic diseases classified elsewhere; R55 Syncope and collapse; O99.012 Anemia complicating pregnancy, second trimester; Z86.711 Personal history of pulmonary embolism; Z86.718 Personal history of other venous thrombosis and embolism; Z82.49 Family history of ischemic heart disease and other diseases of the circulatory system
CPT/HCPCS: 36415; 76705; 76805; 80053; 80307; 81001; 82150; 83690; 84702; 85025; 85610; 87086; 93005; 96361; 96374

== ENCOUNTER 2020-02-05 14:58 | Inpatient (IN) | payer MEDICAID ==
[~2020-02-05] VITALS: Ht 160 cm; Wt 74.1 kg
[~2020-02-05 14:58] MED LIST changes: +ENO40SY SC; -FER325T PO; +FERR18TA2 PO; +PREN27TA7 OR; -WARPRX PO
[2020-02-05] MEDS ORDERED: SODIUM CHLORIDE 0.9% 1,000 ML IV ONE ×2 (15:12)
[2020-02-05] MEDS ORDERED: MORPHINE SULFATE 4 MG/ML SYR/VIAL IV ONE (15:15)
[2020-02-05] MEDS ORDERED: cefTRIAXone 1GM/50ML D5W 50 ML IV ONE (15:15)
[2020-02-05] MEDS ORDERED: ONDANSETRON HCL 4 MG/2 ML VIAL IV ONE (15:15)
[2020-02-05 15:22] LABS: Urine WBC None Seen /hpf (0 - 5)
[2020-02-05 15:29] LABS: Urine Bacteria NONE SEEN /hpf (None Seen); Urine Blood Negative /uL (Negative); Urine Specific Gravity 1.006 (1.001-1.035)
[2020-02-05 15:38] LABS: Basophils # (auto) 0 10 ^3/uL (0-0.2); Basophils % (auto) 0.4 % (0.0-2.0); Eosinophils # (auto) 0.1 10 ^3/uL (0-0.8); Eosinophils % (auto) 0.9 % (0.0-7.0); Hematocrit 42.3 % (36.0-46.0); Hemoglobin 14.4 g/dL (12.2-16.2); Lymphocytes # (auto) 1.4 10 ^3/uL (0.4-5.4); Lymphocytes % (auto) 13.3 % (10.0-50.0); Mean Corpuscular Volume 88.2 fL (80.0-100.0); Monocytes # (auto) 0.4 10 ^3/uL (0-1.3); Monocytes % (auto) 4.2 % (0.0-12.0); Neutrophils # (auto) 8.5 10 ^3/uL (1.6-8.6); Neutrophils % (auto) 81.2 % (37.0-80.0); Platelet Count (auto) 260 10^3/uL (140-450); Red Blood Cells 4.79 10^6/uL (4.0-5.20); Red Cell Distribution Width 13.5 % (11.8-14.3); White Blood Cell 10.5 10^3/uL (4.4-10.8)
[2020-02-05 15:53] LABS: Albumin 3.7 g/dL (3.4-5.0); BUN/Creatinine Ratio 6.9; Potassium 4.3 mmol/L (3.5-5.1)
[2020-02-05] MEDS ORDERED: IOHEXOL 300 MG/ML 100ML BOTTLE IJ ONE (15:54)
[2020-02-05 16:02] LABS: Bilirubin, Total 0.3 mg/dL (0.2-1.0); Total Protein 7.6 g/dL (6.4-8.2)
[2020-02-05] MEDS ORDERED: HYDROmorphone HCL 2 MG/ML VL IV PRN (17:30)
[2020-02-05] MEDS ORDERED: MORPHINE SULF INJ 2 MG/ML SYRINGE 1ML IV PRN (17:30)
[2020-02-05] MEDS ORDERED: ONDANSETRON HCL 4 MG/2 ML VIAL IV PRN (17:30)
[2020-02-05] MEDS ORDERED: NITROGLYCERIN 0.4 MG SL TAB SL PRN (17:30)
[2020-02-05 19:30] VITALS: BP 105/68
--- NOTE | 2020-02-05 19:30 | NUR ---
MS admit from ER BERTRAM,DIPESH admitted to tele/MS. Patient oriented to Sloane Arrieta RN primary RN, unit, room, bed, and unit policies regarding patient care and visiting hours. Patient weighed by bedscale and encouraged to call if they need something. All questions and concerns addressed, patient verbalized understanding. Bed is in lowest locked position with bed rails up x2 and call light within reach.
[2020-02-05] MEDS: D5W/SOD CHLO 0.9% 1,000 ML IV SCH (19:53)
[2020-02-05 19:55] VITALS: BP 105/68
[2020-02-05 22:30] VITALS: BP 89/59
--- NOTE | 2020-02-06 05:12 | NUR ---
Low blood pressure, notified MD: Notified MD about patients low blood pressure and patients pain. Patient reports no symptoms associated with low Blood pressure. New orders received for a bolus of normal saline fluid and norco 10mg for pain [id number]. To place orders. Addendum: 02/06/20 at 0649 by Sloane Arrieta RN RN Notified hospitalist Ray.
[2020-02-06 05:13] LABS: Albumin 2.6 g/dL (3.4-5.0); BUN/Creatinine Ratio 10.4; Calcium 7.7 mg/dL (8.5-10.1); Potassium 3.5 mmol/L (3.5-5.1)
[2020-02-06 05:15] LABS: Bilirubin, Total 0.2 mg/dL (0.2-1.0); Total Protein 5.7 g/dL (6.4-8.2)
[2020-02-06] MEDS ORDERED: SODIUM CHLORIDE 0.9% 1,000 ML IV ONE (05:15)
[2020-02-06] MEDS: HYDROcodone-ACET 10/325MG TAB PO PRN ×3 (05:24→20:19)
[2020-02-06 05:28] VITALS: BP 85/43
[2020-02-06] MEDS: D5W/SOD CHLO 0.9% 1,000 ML IV SCH ×4 (06:24→20:20)
[2020-02-06 08:59] VITALS: BP 82/50
[2020-02-06] MEDS: ENOXAPARIN SOD 40 MG/0.4 ML SYRINGE SC SCH (09:33)
[2020-02-06] MEDS: MULTIPLE VITAMIN TAB PO SCH (09:33)
--- NOTE | 2020-02-06 10:31 | NUR ---
MANAGER BEVERAGE REPORTS PT BP IS 82/50, HR 58, 02 100%. REASSESSED. PT BP 77/51, HR 61, 02 99%. PT REPORTS NO SYMPTOMS, IS A AND 0 X 4 AND SPEAKING COHERENTLY. NOTIFIED DR SONG OF BP 77/51. AWARE, NEW ORDERS FOR LR 2000 MLS. Addendum: 02/06/20 at 1618 by JUAN RAMIREZ RN BOLUS
[2020-02-06] MEDS ORDERED: LACTATED RINGER'S 2,000 ML IV ONE (10:45)
--- NOTE | 2020-02-06 11:04 | NUR ---
NOTIFIED DR SONG PT REQUESTING DR MACHADO IF HE ORDERS A GI CONSULT. AWARE.
[2020-02-06] MEDS ORDERED: ONDANSETRON HCL 4 MG/2 ML VIAL IV PRN (12:00)
[2020-02-06] MEDS: PANTOPRAZOLE 40 MG/10 ML VIAL INJ IV SCH (12:09)
--- NOTE | 2020-02-06 12:14 | NUR ---
DR SONG SAW PATIENT AND DISCUSSED POC, REPORTS PT DOES NOT NEED GI CONSULT AT THIS TIME. MD REPORTS HE WILL RUN LIPID PANEL AND ADVANCE DIET TOLERATED ONCE PATIENT HAS NO MORE PAIN. PT AWARE, WILL CONTINUE TO MONITOR.
[2020-02-06 13:00] VITALS: BP 83/50
--- NOTE | 2020-02-06 13:00 | NUR ---
PT BP 83/50, HR 64,STILL GIVING BOLUS, IV DIDN'T TOLERATE HIGH VOLUME BOLUS.
[2020-02-06 17:00] VITALS: BP 86/50
--- NOTE | 2020-02-06 19:55 | NUR ---
Patient requesting nicotine patch, called Dr. Valadez, no answer at the urgent care where he is at. Will endorse to AM nurse to get an order.
[2020-02-06 22:00] VITALS: BP 92/60
[2020-02-07] MEDS: D5W/SOD CHLO 0.9% 1,000 ML IV SCH ×4 (02:01→17:32)
[2020-02-07] MEDS: HYDROcodone-ACET 10/325MG TAB PO PRN ×3 (04:26→18:46)
[2020-02-07 04:54] VITALS: BP 93/66
[2020-02-07 05:32] LABS: Basophils # (auto) 0 10 ^3/uL (0-0.2); Basophils % (auto) 0.4 % (0.0-2.0); Eosinophils # (auto) 0.2 10 ^3/uL (0-0.8); Hematocrit 33.9 % (36.0-46.0); Hemoglobin 11.1 g/dL (12.2-16.2); Lymphocytes # (auto) 1.5 10 ^3/uL (0.4-5.4); Lymphocytes % (auto) 34.5 % (10.0-50.0); Mean Corpuscular Hemoglobin 29.2 pg (28.0-32.0); Mean Corpuscular Hgb Conc. 32.7 g/dL (32.0-36.0); Mean Corpuscular Volume 89.5 fL (80.0-100.0); Monocytes # (auto) 0.3 10 ^3/uL (0-1.3); Monocytes % (auto) 6.1 % (0.0-12.0); Neutrophils # (auto) 2.4 10 ^3/uL (1.6-8.6); Platelet Count (auto) 178 10^3/uL (140-450); Red Blood Cells 3.79 10^6/uL (4.0-5.20); White Blood Cell 4.4 10^3/uL (4.4-10.8)
[2020-02-07 05:45] LABS: INR 1.18 (0.9-1.15); Partial Thromboplastin Time 29.9 sec (23.64-32.05)
[2020-02-07 06:07] LABS: Potassium 3.3 mmol/L (3.5-5.1)
[2020-02-07 06:13] LABS: Cholesterol 134 mg/dL (< 200)
[2020-02-07 06:16] LABS: Albumin 2.8 g/dL (3.4-5.0); BUN/Creatinine Ratio 8.3; Bilirubin, Total 0.2 mg/dL (0.2-1.0); Calcium 7.8 mg/dL (8.5-10.1); HDL Cholesterol 31 mg/dL (40-59); LDL Cholesterol 86 mg/dL (< 100); Magnesium 1.7 mg/dL (1.6-2.6); Total Protein 5.5 g/dL (6.4-8.2); Triglycerides 88 mg/dL (< 150)
--- NOTE | 2020-02-07 07:55 | NUR ---
OPENING NOTE PT RESTING IN BED NO DISTRESS NOTED. WOUNDS ON LEFT AND RIGHT LATERAL THIGHS SPRAYED WITH WOUND CLEANSER AND SILVADENE CREAM APPLIED. WOUNDS COVERED WITH OPTIFOAM. MINIMAL SEROSANGUINEOUS DRAINAGE NOTED ON PREVIOUS BANDAGES. 50 MLS CLOUDY YELLOW URINE NOTED IN [place]. WILL CONTINUE TO MONITOR.
[2020-02-07 08:41] VITALS: BP 97/64
[2020-02-07 09:02] LABS: Alcohol, Urine < 3.0 mg/dL (0-5); Amphetamine Screen, Urine NEGATIVE (NEGATIVE); Barbiturate Scree,Urine NEGATIVE (NEGATIVE); Benzodiazephine Screen, Urine NEGATIVE (NEGATIVE); Cannabinoid Screen, Urine NEGATIVE (NEGATIVE); Cocaine Screen, Urine NEGATIVE (NEGATIVE); Phencyclidine Screen, Urine NEGATIVE (NEGATIVE)
[2020-02-07 09:10] LABS: Opiate Scree,Urine POSITIVE (NEGATIVE)
[2020-02-07] MEDS: MULTIPLE VITAMIN TAB PO SCH (09:10)
[2020-02-07] MEDS: PANTOPRAZOLE 40 MG/10 ML VIAL INJ IV SCH (09:10)
[2020-02-07] MEDS: ENOXAPARIN SOD 40 MG/0.4 ML SYRINGE SC SCH (09:11)
--- NOTE | 2020-02-07 12:09 | NUR ---
DR SONG CAME AND SAW PATIENT AND DISCUSSED POC. PT REQUESTED NICOTINE PATCH AND REPORTS SHE TOLERATED CLEAR LIQUID DIET WELL. PT ADVANCED TO FULL LIQUID DIET, AND NEW ORDERS FOR NICOTINE PATCH, WILL CONTINUE TO MONITOR.
[2020-02-07] MEDS ORDERED: NICOTINE 14 MG/24HR TOPICAL PATCH TD ONE (12:15)
[2020-02-07 13:00] VITALS: BP 94/62
[2020-02-07] MEDS ORDERED: MAGNESIUM SULFATE 1GM/100ML 100 ML IV ONE (15:45)
[2020-02-07] MEDS ORDERED: POTASSIUM CHL 20 Meq TABLET PO ONE (15:45)
[2020-02-07] MEDS ORDERED: MAGNESIUM OXIDE 400 MG TAB PO ONE (15:45)
[2020-02-07] MEDS ORDERED: POTASSIUM CHL 20MEQ/100ML 100 ML IV ONE (15:45)
[2020-02-07 17:00] VITALS: BP 101/67
[2020-02-07] MEDS: MAGNESIUM OXIDE 400 MG TAB PO SCH (19:54)
[2020-02-07 21:46] VITALS: BP 98/66
[2020-02-08] MEDS: D5W/SOD CHLO 0.9% 1,000 ML IV SCH ×4 (00:39→10:22)
[2020-02-08 04:45] VITALS: BP 112/69
[2020-02-08 05:04] LABS: Basophils # (auto) 0 10 ^3/uL (0-0.2); Basophils % (auto) 0.7 % (0.0-2.0); Eosinophils # (auto) 0.2 10 ^3/uL (0-0.8); Eosinophils % (auto) 5.4 % (0.0-7.0); Hematocrit 30.8 % (36.0-46.0); Hemoglobin 10.2 g/dL (12.2-16.2); Lymphocytes # (auto) 1.6 10 ^3/uL (0.4-5.4); Mean Corpuscular Hemoglobin 29.6 pg (28.0-32.0); Mean Corpuscular Hgb Conc. 33.2 g/dL (32.0-36.0); Mean Corpuscular Volume 89.2 fL (80.0-100.0); Monocytes # (auto) 0.3 10 ^3/uL (0-1.3); Monocytes % (auto) 7.3 % (0.0-12.0); Neutrophils # (auto) 1.4 10 ^3/uL (1.6-8.6); Neutrophils % (auto) 41.6 % (37.0-80.0); Platelet Count (auto) 184 10^3/uL (140-450); Red Blood Cells 3.45 10^6/uL (4.0-5.20); Red Cell Distribution Width 13.4 % (11.8-14.3); White Blood Cell 3.5 10^3/uL (4.4-10.8)
[2020-02-08 05:46] LABS: Albumin 2.4 g/dL (3.4-5.0); Calcium 7.7 mg/dL (8.5-10.1); Magnesium 2.3 mg/dL (1.6-2.6); Potassium 4.3 mmol/L (3.5-5.1)
[2020-02-08 05:50] LABS: BUN/Creatinine Ratio 5.4; Bilirubin, Total 0.3 mg/dL (0.2-1.0); Phosphorus 2.6 mg/dL (2.5-4.90); Total Protein 5.4 g/dL (6.4-8.2)
[2020-02-08] MEDS: HYDROcodone-ACET 10/325MG TAB PO PRN ×2 (06:09→11:46)
[2020-02-08 08:00] VITALS: BP 108/52
[2020-02-08 09:07] VITALS: BP 108/52
--- NOTE | 2020-02-08 09:33 | NUR ---
Opening Note Patient is sitting up comfortably in bed eating breakfast. Patient AOx4. No signs of distress. Discussed POC with patient. Bed at lowest position and call light within reach. Will continue to monitor.
[2020-02-08] MEDS: MAGNESIUM OXIDE 400 MG TAB PO SCH (09:51)
[2020-02-08] MEDS: PANTOPRAZOLE 40 MG/10 ML VIAL INJ IV SCH (09:52)
[2020-02-08] MEDS: MULTIPLE VITAMIN TAB PO SCH (09:52)
[2020-02-08] MEDS: ENOXAPARIN SOD 40 MG/0.4 ML SYRINGE SC SCH (09:52)
[2020-02-08] MEDS ORDERED: POTASSIUM CHL 20 Meq TABLET PO SCH (10:00)
[2020-02-08] MEDS ORDERED: NICOTINE 14 MG/24HR TOPICAL PATCH TD SCH (10:00)
--- NOTE | 2020-02-08 10:51 | NUR ---
Dr. Michell WINCHESTER at bedside. Plans on d/c patient home today.
[2020-02-08 11:20] VITALS: BP 108/52
--- NOTE | 2020-02-08 11:34 | NUR ---
IV D/C'ed IV to pt's L FA removed. Catheter was removed fully intact, site is asymptomatic. Pressure was applied to site for 3 minutes with gauze and then wrapped in coban. Pt instructed to keep dressing on for 30 minutes; pt verbalized understanding.
--- NOTE | 2020-02-08 12:35 | NUR ---
Patient Discharged Discharge education explained to patient. All questions answered. Patient took all belongings with her. Patient denied need for wheelchair. Patient AO x4 and ambulated off unit without difficulty.
== END 2020-02-08 12:37 | disposition home or self-care (01) | DRG 282 ==
LOC: ER 14:58 → OVERFLOW 14:59 → CENTRAL 19:41
PROVIDERS: ADMIT Nurse Practitioner Acute Care; ATTEND Internal Medicine
DX: K85.20 Alcohol induced acute pancreatitis without necrosis or infection (principal); E83.51 Hypocalcemia; E86.0 Dehydration; K86.3 Pseudocyst of pancreas; F17.210 Nicotine dependence, cigarettes, uncomplicated; Z83.3 Family history of diabetes mellitus; Z88.5 Allergy status to narcotic agent; Z86.718 Personal history of other venous thrombosis and embolism; Z79.899 Other long term (current) drug therapy; Z80.9 Family history of malignant neoplasm, unspecified; Z82.3 Family history of stroke; Z86.711 Personal history of pulmonary embolism; K86.1 Other chronic pancreatitis
CPT/HCPCS: 36415; 71045; 74177; 80053; 80061; 80307; 81001; 81025; 83036; 83605; 83690; 83735; 84100; 85025; 85610; 85730; 87040; 96365; 96375; C9113; G0378; J0696; J2405; J3480; J7042

== ENCOUNTER 2020-02-24 12:59 | Inpatient (IN) | payer MEDICAID ==
[~2020-02-24] VITALS: Ht 166.4 cm; Wt 76.1 kg
[2020-02-24 13:40] LABS: Basophils # (auto) 0.1 10 ^3/uL (0-0.2); Basophils % (auto) 0.8 % (0.0-2.0); Eosinophils # (auto) 0.3 10 ^3/uL (0-0.8); Eosinophils % (auto) 2.4 % (0.0-7.0); Hematocrit 39.8 % (36.0-46.0); Hemoglobin 13.1 g/dL (12.2-16.2); Lymphocytes # (auto) 2.1 10 ^3/uL (0.4-5.4); Lymphocytes % (auto) 19.9 % (10.0-50.0); Mean Corpuscular Hemoglobin 29.3 pg (28.0-32.0); Mean Corpuscular Hgb Conc. 32.9 g/dL (32.0-36.0); Mean Corpuscular Volume 88.9 fL (80.0-100.0); Monocytes # (auto) 0.6 10 ^3/uL (0-1.3); Monocytes % (auto) 5.6 % (0.0-12.0); Neutrophils # (auto) 7.7 10 ^3/uL (1.6-8.6); Neutrophils % (auto) 71.3 % (37.0-80.0); Platelet Count (auto) 287 10^3/uL (140-450); Red Blood Cells 4.48 10^6/uL (4.0-5.20); Red Cell Distribution Width 13.9 % (11.8-14.3); White Blood Cell 10.7 10^3/uL (4.4-10.8)
[2020-02-24 13:45] LABS: Urine Bacteria NONE SEEN /hpf (None Seen); Urine Blood Negative /uL (Negative); Urine Mucus FEW (None Seen); Urine Specific Gravity 1.009 (1.001-1.035); Urine WBC 2 /hpf (0 - 5)
[2020-02-24] MEDS ORDERED: SODIUM CHLORIDE 0.9% 1,000 ML IVB ONE (13:57)
[2020-02-24] MEDS ORDERED: PROMETHAZINE HCL 25 MG/ML 1ML IV ONE (14:00)
[2020-02-24] MEDS ORDERED: PANTOPRAZOLE 40 MG/10 ML VIAL INJ IV ONE ×2 (14:00→16:00)
[2020-02-24] MEDS ORDERED: MORPHINE SULF INJ 2 MG/ML SYRINGE 1ML IV ONE (14:00)
[2020-02-24 14:01] LABS: Albumin 3.7 g/dL (3.4-5.0); Calcium 8.8 mg/dL (8.5-10.1)
[2020-02-24 14:10] LABS: BUN/Creatinine Ratio 14.7; Bilirubin, Total 0.3 mg/dL (0.2-1.0)
[2020-02-24 14:27] LABS: INR 1.03 (0.9-1.15); Partial Thromboplastin Time 24.8 sec (23.64-32.05)
[2020-02-24] MEDS ORDERED: HYDROmorphone HCL 2 MG/ML VL IV ONE (15:15)
[2020-02-24] MEDS ORDERED: ONDANSETRON HCL 4 MG/2 ML VIAL IV ONE (15:15)
[2020-02-24] MEDS ORDERED: SODIUM CHLORIDE 0.9% 1,000 ML IV SCH (15:51)
[2020-02-24] MEDS ORDERED: MORPHINE SULF INJ 2 MG/ML SYRINGE 1ML IV PRN (16:00)
[2020-02-24] MEDS ORDERED: DEXTROSE (50%) 50ML SYRG IV PRN (16:00)
[2020-02-24] MEDS ORDERED: NITROGLYCERIN 0.4 MG SL TAB SL PRN (16:00)
[2020-02-24] MEDS ORDERED: LORazepam 0.5 MG TAB PO PRN (16:00)
[2020-02-24] MEDS ORDERED: ONDANSETRON HCL 4 MG/2 ML VIAL IV PRN (16:00)
[2020-02-24] MEDS: LACTATED RINGER'S 1,000 ML IV SCH ×2 (16:33→23:13)
[2020-02-24] MEDS: ACCU-CHEK COMFORT CURVE STRIP VI SCH ×2 (17:03→22:13)
[2020-02-24] MEDS: InsuLIN REG 1unit/0.01ml Soln (100units/ml) SC SCH ×2 (17:05→22:00)
[2020-02-24] MEDS ORDERED: PANC3600 PO (18:23)
[2020-02-24] MEDS ORDERED: ENOX80IN8 SC (18:23)
--- NOTE | 2020-02-24 18:41 | NUR ---
MRSA SWAB COLLECTED AND SENT TO LAB.
--- NOTE | 2020-02-24 19:32 | NUR ---
Opening Shift Note Received report and assumed care of patient. Patient is awake and alert. No signs or symptoms of distress noted. Instructed patient on plan of care and to call for assistance as needed. Will continue to monitor.
[2020-02-24] MEDS: HYDROmorphone HCL 2 MG/ML VL IV PRN (20:23)
--- NOTE | 2020-02-24 20:23 | NUR ---
Pain Medication Administration Patient complaining of abdominal pain 07/14. Administered pain medication per MD order. Will reassess and continue to monitor.
--- NOTE | 2020-02-24 20:52 | NUR ---
Pain Level Reassessment Patient asleep for pain level reassessment. No signs or symptoms of distress noted. Will continue to monitor.
[2020-02-24 22:00] VITALS: BP 92/61
[2020-02-24] MEDS: ENOXAPARIN SOD 60 MG/0.6 ML SYRINGE SC SCH (22:08)
--- NOTE | 2020-02-24 22:08 | NUR ---
Pain Level Patient stated pain level is 5/10. Patient stated she "is comfortable". Educated patient regarding ordered pain medications. Repositioned for comfort. Will continue to monitor.
[2020-02-25] MEDS ORDERED: CIPR-173 PO (01:27)
[2020-02-25 05:00] VITALS: BP 90/61
[2020-02-25] MEDS: HYDROmorphone HCL 2 MG/ML VL IV PRN ×4 (06:30→23:33)
[2020-02-25] MEDS: LACTATED RINGER'S 1,000 ML IV SCH ×4 (06:30→23:34)
[2020-02-25] MEDS: InsuLIN REG 1unit/0.01ml Soln (100units/ml) SC SCH (06:30)
[2020-02-25] MEDS: ACCU-CHEK COMFORT CURVE STRIP VI SCH (06:30)
--- NOTE | 2020-02-25 07:59 | NUR ---
OPENING SHIFT NOTE Assumed care of patient. No S/S of distress or SOB. Alert and oriented x4. Instructed on POC and to call for assist PRN. Bed low and locked position with side rails up x2. Seizure precautions in place. Call light within reach. Will continue to monitor for changes Q1hr and PRN.
[2020-02-25 08:00] VITALS: BP 96/61
[2020-02-25] MEDS: PANTOPRAZOLE 40 MG/10 ML VIAL INJ IV SCH (09:56)
[2020-02-25] MEDS: ENOXAPARIN SOD 60 MG/0.6 ML SYRINGE SC SCH ×2 (09:56→23:00)
[2020-02-25] MEDS: DOCUSATE SOD 100 MG CAP PO SCH (09:59)
[2020-02-25] MEDS ORDERED: ENOXAPARIN SOD 80 MG/0.8ML SYRINGE SC SCH (10:00)
--- NOTE | 2020-02-25 10:01 | NUR ---
PHONED DR VILLATORO REGARDING LAB ORDERS. AWAITING CALLBACK.
--- NOTE | 2020-02-25 10:02 | NUR ---
PT REFUSED COLACE. WILL NOTIFY HOSPITALIST.
--- NOTE | 2020-02-25 10:29 | NUR ---
2ND MRSA SWAB SENT TO LAB. WILL FOLLOW UP WITH LAB AND MICROBIOLOGY.
[2020-02-25] MEDS ORDERED: ACET-1304 PO (11:38)
[2020-02-25] MEDS ORDERED: PREN-96 PO (11:38)
[2020-02-25 12:00] VITALS: BP 96/51
[2020-02-25] MEDS: CIPROFLOXACIN HCL 500 MG TAB PO SCH (12:04)
[2020-02-25 17:00] VITALS: BP 95/52
[2020-02-25 22:00] VITALS: BP 82/48
--- NOTE | 2020-02-25 23:30 | NUR ---
IV removal/insertion 22g IV to the Left hand reddened. Discontinued IV with clean technique, catheter tip fully intact. Pressure dressing applied to site. NOTE: Inserted 22g IV to the Right forearm. Patient tolerated procedure well.
[2020-02-25 23:33] VITALS: BP 96/55
--- NOTE | 2020-02-25 23:33 | NUR ---
Pain Medication Administration Patient complaining of abdominal pain 05/13. Administered pain medication per MD order. Will reassess and continue to monitor.
[2020-02-26] VITALS (8 sets, daily range): BP systolic 89–100; BP diastolic 49–67
--- NOTE | 2020-02-26 00:02 | NUR ---
Pain Level Reassessment Patient asleep for pain level reassessment. No signs or symptoms of distress noted. Will continue to monitor.
[2020-02-26] MEDS: HYDROmorphone HCL 2 MG/ML VL IV PRN (06:53)
--- NOTE | 2020-02-26 07:30 | NUR ---
Opening Shift Note Assumed care of patient, awake and alert. No S/S of distress/SOB. Patient denies pain at this time. Instructed on POC and to call for assist PRN, will continue to monitor for changes Q1hr and PRN. Bed is set in lowest locked position and call light is within reach.
[2020-02-26] MEDS: LACTATED RINGER'S 1,000 ML IV SCH ×3 (08:32→21:50)
--- NOTE | 2020-02-26 09:57 | NUR ---
MD rounding at bedside, Dr. Bishop Patient requesting to have "a weaker pain medication" patient states "the dilaudid is too strong and masks her real symptoms". New orders received and read back for verification. MD updated pt on POC patient verbalized understanding.
[2020-02-26] MEDS: ENOXAPARIN SOD 60 MG/0.6 ML SYRINGE SC SCH ×2 (10:00→22:18)
[2020-02-26] MEDS: CIPROFLOXACIN HCL 500 MG TAB PO SCH (10:00)
[2020-02-26] MEDS: PANTOPRAZOLE 40 MG/10 ML VIAL INJ IV SCH (10:00)
[2020-02-26] MEDS: DOCUSATE SOD 100 MG CAP PO SCH (10:00)
[2020-02-26] MEDS: HYDROcodone-ACET 5/325MG TAB PO PRN ×3 (12:29→22:19)
--- NOTE | 2020-02-26 14:00 | NUR ---
Diet tolerated Patient states she is tolerating her diet and requests to be advanced to a soft diet.
--- NOTE | 2020-02-26 15:30 | NUR ---
Spoke to MD Dr. Bishop, per MD patient may advance to a soft diet.
--- NOTE | 2020-02-26 17:45 | NUR ---
Care endorsed to CHEVY Diaz.
--- NOTE | 2020-02-26 17:50 | NUR ---
Received pt resting in bed, call light with in reach, pt eating now, will continue to monitor pt.
--- NOTE | 2020-02-26 18:15 | NUR ---
Pt reported generalized abdominal pain 6/10, pt requested pain medication, pt medicated as order.
--- NOTE | 2020-02-26 19:25 | NUR ---
Opening Shift Note Assumed care of patient, awake and alert. No S/S of distress/SOB or pain. Insructed on POC and to callfor assist PRN, will continue to monitor for changes Q1hr and PRN. PATIENT RESTING IN BED, BED IN LOWEST POSITION, SIDE RALES UP X2, CALL LIGHT AT HER SIDE WITHIN REACH.
--- NOTE | 2020-02-26 22:19 | NUR ---
PATIENT REPORTS PAIN 5/10 PATIENT REQUESTING PAIN MEDICATION STATING PAIN 5/10, NORCO 5\325 GIVEN WILL REASSESS WITHIN ONE HOUR.
[2020-02-27] MEDS: LACTATED RINGER'S 1,000 ML IV SCH ×3 (04:30→17:50)
[2020-02-27 04:54] VITALS: BP 94/54
[2020-02-27] MEDS: HYDROcodone-ACET 5/325MG TAB PO PRN ×2 (06:53→12:18)
--- NOTE | 2020-02-27 06:54 | NUR ---
PATIENT REQUESTING PAIN MEDICATION PATIENT STATES ABDOMINAL PAIN 5, NORCO 5/235 GIVEN WILL ENDORSE REASSESSMENT TO DAY SHIFT FOR ONE HOUR.
[2020-02-27 06:59] LABS: Basophils # (auto) 0 10 ^3/uL (0-0.2); Basophils % (auto) 0.5 % (0.0-2.0); Eosinophils # (auto) 0.2 10 ^3/uL (0-0.8); Eosinophils % (auto) 4.7 % (0.0-7.0); Hematocrit 30.2 % (36.0-46.0); Hemoglobin 10.4 g/dL (12.2-16.2); Lymphocytes # (auto) 1.4 10 ^3/uL (0.4-5.4); Lymphocytes % (auto) 36.5 % (10.0-50.0); Mean Corpuscular Hemoglobin 30.2 pg (28.0-32.0); Mean Corpuscular Hgb Conc. 34.5 g/dL (32.0-36.0); Mean Corpuscular Volume 87.7 fL (80.0-100.0); Monocytes # (auto) 0.3 10 ^3/uL (0-1.3); Monocytes % (auto) 8.7 % (0.0-12.0); Neutrophils # (auto) 1.9 10 ^3/uL (1.6-8.6); Neutrophils % (auto) 49.6 % (37.0-80.0); Nucleated Red Blood Cells % 0.1 %; Platelet Count (auto) 191 10^3/uL (140-450); Red Blood Cells 3.44 10^6/uL (4.0-5.20); Red Cell Distribution Width 13.1 % (11.8-14.3); White Blood Cell 3.9 10^3/uL (4.4-10.8)
--- NOTE | 2020-02-27 07:28 | NUR ---
Opening Shift Note Assumed care of patient, awake and alert. No S/S of distress/SOB or pain. Instructed on POC and to call for assist PRN, will continue to monitor for changes Q1hr and PRN. Bed in locked and lowest position, side rales up x2, call light and phone within reach.
[2020-02-27 07:32] LABS: Potassium 3.6 mmol/L (3.5-5.1)
[2020-02-27 07:39] LABS: BUN/Creatinine Ratio 12.3; Calcium 8.1 mg/dL (8.5-10.1)
[2020-02-27 08:00] VITALS: BP 90/56
[2020-02-27 09:00] VITALS: BP 90/56
[2020-02-27] MEDS: PANTOPRAZOLE 40 MG/10 ML VIAL INJ IV SCH (10:01)
[2020-02-27] MEDS: DOCUSATE SOD 100 MG CAP PO SCH ×2 (10:02→10:05)
[2020-02-27] MEDS: ENOXAPARIN SOD 60 MG/0.6 ML SYRINGE SC SCH (10:03)
--- NOTE | 2020-02-27 11:35 | NUR ---
Per Dr. Castillo, patient cleared from GI and for discharge.
[2020-02-27 12:34] VITALS: BP 85/51
[2020-02-27 17:00] VITALS: BP 88/50
--- NOTE | 2020-02-27 19:40 | NUR ---
patient discharged at this time. Care summary and follow up instructions copies given. Patient alert and oriented at time of discharge. Own medication picked up from pharmacy. IV discontinued and tele box returned to ICU.
[2020-02-27 22:00] VITALS: BP 117/95
== END 2020-02-27 19:40 | disposition home or self-care (01) | DRG 282 ==
LOC: ER 12:59 → WEST WING 13:00 → TELE-WESTW 13:01
PROVIDERS: ADMIT Hospitalist; ATTEND Internal Medicine
DX: K85.90 Acute pancreatitis without necrosis or infection, unspecified (principal); K76.89 Other specified diseases of liver; D63.8 Anemia in other chronic diseases classified elsewhere; F10.10 Alcohol abuse, uncomplicated; F12.90 Cannabis use, unspecified, uncomplicated; F17.210 Nicotine dependence, cigarettes, uncomplicated; Z88.6 Allergy status to analgesic agent; Z79.899 Other long term (current) drug therapy; Z86.718 Personal history of other venous thrombosis and embolism; Z82.49 Family history of ischemic heart disease and other diseases of the circulatory system; Z79.01 Long term (current) use of anticoagulants; Z82.3 Family history of stroke; Z83.3 Family history of diabetes mellitus; Z80.8 Family history of malignant neoplasm of other organs or systems
CPT/HCPCS: 36415; 74176; 80048; 80053; 81001; 81025; 82150; 82962; 83690; 83735; 85025; 85610; 85730; 87081; C9113; G0378; J2405

== ENCOUNTER 2021-12-02 11:34 | Inpatient (IN) | payer MEDICAID ==
[~2021-12-02] VITALS: Ht 165.1 cm; Wt 73.7 kg
[~2021-12-02 11:34] MED LIST changes: +ACET-1304 PO; +CIPR-173 PO; -ENO40SY SC; +ENOX80IN8 SC; +PANC3600 PO; +PREN-96 PO; -PREN27TA7 OR
[2021-12-02 12:43] LABS: Basophils # (auto) 0 10 ^3/uL (0-0.2); Basophils % (auto) 0.4 % (0.0-2.0); Eosinophils # (auto) 0.1 10 ^3/uL (0-0.8); Eosinophils % (auto) 1.5 % (0.0-7.0); Hematocrit 36.8 % (36.0-46.0); Hemoglobin 12.4 g/dL (12.2-16.2); Lymphocytes # (auto) 1.5 10 ^3/uL (0.4-5.4); Lymphocytes % (auto) 21.5 % (10.0-50.0); Mean Corpuscular Hemoglobin 28.4 pg (28.0-32.0); Mean Corpuscular Hgb Conc. 33.7 g/dL (32.0-36.0); Mean Corpuscular Volume 84.4 fL (80.0-100.0); Monocytes # (auto) 0.4 10 ^3/uL (0-1.3); Monocytes % (auto) 5.5 % (0.0-12.0); Neutrophils # (auto) 4.9 10 ^3/uL (1.6-8.6); Neutrophils % (auto) 71.1 % (37.0-80.0); Nucleated Red Blood Cells % 0.1 %; Red Blood Cells 4.36 10^6/uL (4.0-5.20); Red Cell Distribution Width 12.8 % (11.8-14.3); White Blood Cell 6.9 10^3/uL (4.4-10.8)
[2021-12-02 12:54] LABS: Albumin 3.8 g/dL (3.4-5.0); BUN/Creatinine Ratio 10.9; Calcium 9.2 mg/dL (8.5-10.1); Potassium 3.7 mmol/L (3.5-5.1)
[2021-12-02 12:57] LABS: Bilirubin, Total 0.3 mg/dL (0.2-1.0); Total Protein 8.3 g/dL (6.4-8.2)
[2021-12-02] MEDS ORDERED: ONDANSETRON HCL 4 MG/2 ML VIAL BC ONE (13:00)
[2021-12-02] MEDS ORDERED: SODIUM CHLORIDE 0.9% 1,000 ML IV ONE (13:00)
[2021-12-02] MEDS ORDERED: fentaNYL CITRATE 100 MCG/2 ML VL IV ONE (13:00)
[2021-12-02] MEDS ORDERED: ONDANSETRON HCL 4 MG/2 ML VIAL IV ONE (14:30)
[2021-12-02 16:50] LABS: Urine Bacteria FEW /hpf (None Seen); Urine Blood Negative /uL (Negative); Urine Specific Gravity 1.004 (1.001-1.035); Urine WBC 1 /hpf (0 - 5)
[2021-12-02] MEDS ORDERED: HYDROmorphone HCL 2 MG/ML VL IV PRN (18:15)
[2021-12-02] MEDS ORDERED: ACETAMINOPHEN 325 MG TAB PO PRN (18:15)
[2021-12-02] MEDS ORDERED: DOCUSATE SOD 100 MG CAP PO PRN (18:15)
[2021-12-02] MEDS ORDERED: ONDANSETRON HCL 4 MG/2 ML VIAL IV PRN (18:15)
[2021-12-02] MEDS ORDERED: NITROGLYCERIN 0.4 MG SL TAB SL PRN (18:15)
[2021-12-02] MEDS ORDERED: MORPHINE SULFATE INJECTION 2 MG/ML SYRG IV PRN ×2 (18:15)
[2021-12-02] MEDS ORDERED: LORazepam 0.5 MG TAB PO PRN (18:15)
[2021-12-02] MEDS ORDERED: SODIUM CHLORIDE 0.9% 1,000 ML IV SCH (18:15)
[2021-12-02 23:38] VITALS: BP 112/74
[2021-12-03] MEDS ORDERED: HYDR1TAB97 PO (00:55)
[2021-12-03 05:00] VITALS: BP 89/64
[2021-12-03 09:00] VITALS: BP 93/54
[2021-12-03 10:57] VITALS: BP 97/57
[2021-12-03] MEDS: HYDROcodone-ACET 5/325MG TAB PO PRN ×2 (11:06→15:49)
[2021-12-03] MEDS: LACTATED RINGER'S 1,000 ML IV SCH ×2 (11:15→19:15)
[2021-12-03] MEDS ORDERED: FOLIC ACID 1 MG, MULTIPLE VITAMIN 10 ML, MAGNESIUM SULF SDV 50% 8 MEQ, THIAMINE INJ 100... INJ SCH ×5 (12:00)
[2021-12-03] MEDS ORDERED: PIPERACILLIN-TAZOB 3.375GM 100 ML IV ONE (14:15)
[2021-12-03] MEDS ORDERED: LORazepam 2MG/ML-1ML VIAL IV PRN (14:15)
[2021-12-03] MEDS: PIPERACILLIN-TAZOB 3.375GM 100 ML IV SCH ×2 (18:00→23:59)
[2021-12-03 22:00] VITALS: BP 93/60
[2021-12-04] MEDS: HYDROcodone-ACET 5/325MG TAB PO PRN ×3 (03:29→17:54)
[2021-12-04 05:00] VITALS: BP 100/66
[2021-12-04] MEDS: PIPERACILLIN-TAZOB 3.375GM 100 ML IV SCH ×3 (05:32→17:55)
[2021-12-04 05:43] LABS: Basophils # (auto) 0 10 ^3/uL (0-0.2); Basophils % (auto) 0.7 % (0.0-2.0); Eosinophils # (auto) 0.1 10 ^3/uL (0-0.8); Eosinophils % (auto) 2.5 % (0.0-7.0); Hematocrit 30.9 % (36.0-46.0); Hemoglobin 10.6 g/dL (12.2-16.2); Lymphocytes % (auto) 23.1 % (10.0-50.0); Mean Corpuscular Hemoglobin 29.1 pg (28.0-32.0); Mean Corpuscular Hgb Conc. 34.3 g/dL (32.0-36.0); Mean Corpuscular Volume 84.7 fL (80.0-100.0); Monocytes # (auto) 0.3 10 ^3/uL (0-1.3); Monocytes % (auto) 7.6 % (0.0-12.0); Neutrophils # (auto) 2.9 10 ^3/uL (1.6-8.6); Neutrophils % (auto) 66.1 % (37.0-80.0); Nucleated Red Blood Cells % 0.1 %; Red Blood Cells 3.65 10^6/uL (4.0-5.20); Red Cell Distribution Width 12.8 % (11.8-14.3); White Blood Cell 4.4 10^3/uL (4.4-10.8)
[2021-12-04 06:03] LABS: INR 1.11 (0.9-1.15)
[2021-12-04 06:04] LABS: Calcium 8.2 mg/dL (8.5-10.1)
[2021-12-04 06:09] LABS: BUN/Creatinine Ratio 12.1; Bilirubin, Total 0.4 mg/dL (0.2-1.0); Total Protein 6.3 g/dL (6.4-8.2)
[2021-12-04 07:45] VITALS: BP 92/60
[2021-12-04] MEDS: LACTATED RINGER'S 1,000 ML IV SCH ×3 (10:00→21:33)
[2021-12-04 11:25] VITALS: BP 105/66
[2021-12-04 16:10] VITALS: BP 107/68
[2021-12-04 22:00] VITALS: BP 107/65
[2021-12-05] MEDS: PIPERACILLIN-TAZOB 3.375GM 100 ML IV SCH ×3 (05:09→12:00)
[2021-12-05 05:54] LABS: Hematocrit 29.4 % (36.0-46.0); Hemoglobin 10.2 g/dL (12.2-16.2)
[2021-12-05 06:03] LABS: Amylase 105 U/L (25-115); Lipase 875 U/L (73-393)
[2021-12-05] MEDS: LACTATED RINGER'S 1,000 ML IV SCH (08:26)
[2021-12-05] MEDS: HYDROcodone-ACET 5/325MG TAB PO PRN (08:31)
[2021-12-05 12:00] VITALS: BP 110/68
[2021-12-05] MEDS ORDERED: ONDA-144 PO (12:25)
[2021-12-05] MEDS ORDERED: LEVO500T31 PO (12:25)
[2021-12-05] MEDS ORDERED: METR500T PO (12:25)
== END 2021-12-05 14:02 | disposition home or self-care (01) | DRG 282 ==
LOC: ER 11:34 → OVERFLOW 18:01 → CENTRAL 23:07
PROVIDERS: ADMIT Family Medicine; ATTEND Internal Medicine
DX: K85.20 Alcohol induced acute pancreatitis without necrosis or infection (principal); F17.210 Nicotine dependence, cigarettes, uncomplicated; K80.20 Calculus of gallbladder without cholecystitis without obstruction; K86.0 Alcohol-induced chronic pancreatitis; R73.9 Hyperglycemia, unspecified; Z83.3 Family history of diabetes mellitus; K86.3 Pseudocyst of pancreas; Z20.822 Contact with and (suspected) exposure to COVID-19
CPT/HCPCS: 36415; 74176; 80053; 81001; 81025; 82150; 83690; 83735; 84484; 85014; 85018; 85025; 85610; 87426; 96361; 96374; 96375; G0378; J2405; J2543

== ENCOUNTER 2023-02-02 08:14 | Inpatient (IN) | payer MEDICAID ==
[~2023-02-02] VITALS: Ht 165.1 cm; Wt 79.2 kg
[~2023-02-02 08:14] MED LIST changes: -ACET-1304 PO; -CIPR-173 PO; -ENOX80IN8 SC; -FERR18TA2 PO; +HYDR1TAB97 PO; +LEVO500T31 PO; +METR500T PO; +ONDA-144 PO; -PREN-96 PO
[2023-02-02 09:23] LABS: Basophils # (auto) 0.1 10 ^3/uL (0-0.2); Basophils % (auto) 0.7 % (0.0-2.0); Eosinophils # (auto) 0.1 10 ^3/uL (0-0.8); Eosinophils % (auto) 1.3 % (0.0-7.0); Hematocrit 38.4 % (36.0-46.0); Hemoglobin 13.2 g/dL (12.2-16.2); Lymphocytes # (auto) 1.4 10 ^3/uL (0.4-5.4); Lymphocytes % (auto) 12.1 % (10.0-50.0); Mean Corpuscular Hemoglobin 28.4 pg (28.0-32.0); Mean Corpuscular Hgb Conc. 34.3 g/dL (32.0-36.0); Mean Corpuscular Volume 82.7 fL (80.0-100.0); Monocytes # (auto) 0.5 10 ^3/uL (0-1.3); Monocytes % (auto) 4.6 % (0.0-12.0); Neutrophils # (auto) 9.4 10 ^3/uL (1.6-8.6); Neutrophils % (auto) 81.3 % (37.0-80.0); Nucleated Red Blood Cells % 0.1 %; Red Blood Cells 4.64 10^6/uL (4.0-5.20); Red Cell Distribution Width 13.8 % (11.8-14.3); White Blood Cell 11.5 10^3/uL (4.4-10.8)
[2023-02-02 09:28] LABS: Albumin 3.6 g/dL (3.4-5.0); Calcium 8.9 mg/dL (8.5-10.1); Potassium 3.7 mmol/L (3.5-5.1)
[2023-02-02 09:31] LABS: BUN/Creatinine Ratio 14.6 (10.0-20.0); Bilirubin, Total 0.4 mg/dL (0.2-1.0); Total Protein 8.3 g/dL (6.4-8.2)
[2023-02-02] MEDS ORDERED: ONDANSETRON HCL 4 MG/2 ML VIAL IV ONE (10:15)
[2023-02-02] MEDS ORDERED: SODIUM CHLORIDE 0.9% 1,000 ML IV ONE (10:15)
[2023-02-02] MEDS ORDERED: MORPHINE SULFATE INJ 2 MG/ml SYRG IV ONE (10:15)
[2023-02-02 10:32] LABS: Urine Bacteria FEW /hpf (None Seen); Urine Blood Negative /uL (Negative); Urine Mucus FEW (None Seen); Urine Specific Gravity 1.027 (1.001-1.035); Urine WBC 11 /hpf (0 - 5)
[2023-02-02] MEDS ORDERED: PIPERACILLIN-TAZOB 3.375GM 100 ML IV ONE (11:15)
[2023-02-02] MEDS ORDERED: ONDANSETRON HCL 4 MG/2 ML VIAL IV PRN (13:45)
[2023-02-02] MEDS: SODIUM CHLORIDE 0.9% 1,000 ML IV SCH ×2 (13:45→15:49)
[2023-02-02 16:36] LABS: CRP High Sensitivity 9.05 mg/dL (< 0.3)
[2023-02-02 16:50] VITALS: BP 101/70
[2023-02-02 17:30] VITALS: BP 101/70
[2023-02-02] MEDS: HYDROmorphone HCL 2 MG/ML VL/or syr IV PRN ×2 (18:19→22:50)
[2023-02-02 20:00] VITALS: BP 101/62
[2023-02-02] MEDS: PIPERACILLIN-TAZOB 3.375GM 100 ML IV SCH (20:15)
[2023-02-02 22:00] VITALS: BP 101/62
[2023-02-03] MEDS: HYDROmorphone HCL 2 MG/ML VL/or syr IV PRN ×5 (03:21→23:54)
[2023-02-03] MEDS: PIPERACILLIN-TAZOB 3.375GM 100 ML IV SCH ×4 (03:30→21:25)
[2023-02-03 05:00] VITALS: BP 96/54
[2023-02-03 06:11] LABS: Basophils # (auto) 0 10 ^3/uL (0-0.2); Basophils % (auto) 0.2 % (0.0-2.0); Eosinophils # (auto) 0.1 10 ^3/uL (0-0.8); Eosinophils % (auto) 1.5 % (0.0-7.0); Hematocrit 31.8 % (36.0-46.0); Hemoglobin 10.7 g/dL (12.2-16.2); Lymphocytes # (auto) 1.1 10 ^3/uL (0.4-5.4); Lymphocytes % (auto) 14.6 % (10.0-50.0); Mean Corpuscular Hgb Conc. 33.6 g/dL (32.0-36.0); Mean Corpuscular Volume 86.3 fL (80.0-100.0); Monocytes # (auto) 0.6 10 ^3/uL (0-1.3); Monocytes % (auto) 8.2 % (0.0-12.0); Neutrophils # (auto) 5.7 10 ^3/uL (1.6-8.6); Neutrophils % (auto) 75.5 % (37.0-80.0); Red Blood Cells 3.68 10^6/uL (4.0-5.20); Red Cell Distribution Width 13.2 % (11.8-14.3); White Blood Cell 7.5 10^3/uL (4.4-10.8)
[2023-02-03 06:24] LABS: Albumin 2.9 g/dL (3.4-5.0); Calcium 8.1 mg/dL (8.5-10.1); Potassium 3.9 mmol/L (3.5-5.1)
[2023-02-03 06:29] LABS: BUN/Creatinine Ratio 22.2 (10.0-20.0); Bilirubin, Total 0.6 mg/dL (0.2-1.0); Total Protein 6.8 g/dL (6.4-8.2)
[2023-02-03] MEDS: SODIUM CHLORIDE 0.9% 1,000 ML IV SCH ×3 (06:54→23:34)
[2023-02-03 09:00] VITALS: BP 92/56
[2023-02-03] MEDS: PANTOPRAZOLE 40 MG/10 ML VIAL INJ IV SCH (09:10)
[2023-02-03] MEDS: ENOXAPARIN SOD 40 MG/0.4 ML SYRINGE SC SCH (09:10)
[2023-02-03 13:00] VITALS: BP 112/78
[2023-02-03 17:00] VITALS: BP 92/60
[2023-02-03 20:00] VITALS: BP 101/62
[2023-02-03 22:00] VITALS: BP 101/62
[2023-02-04] MEDS: PIPERACILLIN-TAZOB 3.375GM 100 ML IV SCH ×2 (03:11→10:03)
[2023-02-04 05:00] VITALS: BP 95/61
[2023-02-04] MEDS: HYDROmorphone HCL 2 MG/ML VL/or syr IV PRN ×3 (05:48→16:28)
[2023-02-04 06:05] LABS: Basophils # (auto) 0 10 ^3/uL (0-0.2); Basophils % (auto) 0.5 % (0.0-2.0); Eosinophils # (auto) 0.2 10 ^3/uL (0-0.8); Eosinophils % (auto) 3.1 % (0.0-7.0); Hemoglobin 10.1 g/dL (12.2-16.2); Lymphocytes # (auto) 1.3 10 ^3/uL (0.4-5.4); Lymphocytes % (auto) 24.8 % (10.0-50.0); Mean Corpuscular Hemoglobin 28.5 pg (28.0-32.0); Mean Corpuscular Hgb Conc. 33.8 g/dL (32.0-36.0); Mean Corpuscular Volume 84.4 fL (80.0-100.0); Monocytes # (auto) 0.5 10 ^3/uL (0-1.3); Monocytes % (auto) 9.4 % (0.0-12.0); Neutrophils # (auto) 3.3 10 ^3/uL (1.6-8.6); Neutrophils % (auto) 62.2 % (37.0-80.0); Nucleated Red Blood Cells % 0.1 %; Red Blood Cells 3.55 10^6/uL (4.0-5.20); Red Cell Distribution Width 13.3 % (11.8-14.3); White Blood Cell 5.3 10^3/uL (4.4-10.8)
[2023-02-04 06:25] LABS: Potassium 3.9 mmol/L (3.5-5.1)
[2023-02-04 06:33] LABS: Albumin 2.7 g/dL (3.4-5.0); BUN/Creatinine Ratio 10.8 (10.0-20.0); Bilirubin, Total 0.4 mg/dL (0.2-1.0); Calcium 8.2 mg/dL (8.5-10.1); Total Protein 6.7 g/dL (6.4-8.2)
[2023-02-04 09:00] VITALS: BP 115/69
[2023-02-04] MEDS: ENOXAPARIN SOD 40 MG/0.4 ML SYRINGE SC SCH (10:02)
[2023-02-04] MEDS: PANTOPRAZOLE 40 MG/10 ML VIAL INJ IV SCH (10:02)
[2023-02-04] MEDS: SODIUM CHLORIDE 0.9% 1,000 ML IV SCH (10:03)
[2023-02-04 13:00] VITALS: BP 105/65
[2023-02-04] MEDS ORDERED: HYDROcodone-ACET 5/325MG TAB PO PRN (13:45)
[2023-02-04] MEDS ORDERED: NITR-87 PO (13:47)
[2023-02-04] MEDS ORDERED: HYDR-4902 PO (13:47)
[2023-02-04 16:58] VITALS: BP 105/65
== END 2023-02-04 18:05 | disposition home or self-care (01) | DRG 720 ==
LOC: ER 08:14 → OVERFLOW 13:38 → CENTRAL 16:58
PROVIDERS: ADMIT Nurse Practitioner Family; ATTEND Nurse Practitioner Acute Care
DX: A41.9 Sepsis, unspecified organism (principal); K85.90 Acute pancreatitis without necrosis or infection, unspecified; E86.0 Dehydration; N39.0 Urinary tract infection, site not specified; Z20.822 Contact with and (suspected) exposure to COVID-19; R74.01 Elevation of levels of liver transaminase levels; Z90.49 Acquired absence of other specified parts of digestive tract; Z87.19 Personal history of other diseases of the digestive system; K86.3 Pseudocyst of pancreas; K86.1 Other chronic pancreatitis
CPT/HCPCS: 36415; 74176; 76705; 80053; 80320; 81001; 81025; 82150; 83605; 83690; 85025; 86141; 86304; 87426; 96361; 96365; 96366; 96375; C9113; G0378; J2405; J2543